=== PATIENT | female | born 1955 | race Caucasian/White ===

== ENCOUNTER → 2016-12-15 | Outpatient (CLI) | payer OTHER ==
[~2016-12-15] MED LIST: ALPR-411 PO; ALPR1TAB3 PO; ASPI-435 PO; ASPI325T60 PO; CALC1TAB25 PO; CIME800T4; CITA40TA4; CLBCRM30 EXT; CLX/20 PO; CYAN10004 PO; CYCL5TAB PO; FLUT0.15 NAE; GING1CAP2 PO; IBUP1CAP9; MULTTAB58 PO; OMEG10007 PO; PYRI1TAB30 PO; RXC5 PO; TRAZ100T29 PO; TRAZ50TA35 PO; TURM1CAP2 PO; VITACAP26; VITACAP26 PO; [UNRECOGNIZED DRUG - OTHER] PO
--- NOTE | 2016-12-15 12:59 | DIAGNOSTIC IMAGING REPORT ---
VIDEO SWALLOW STUDY CLINICAL HISTORY: Oral dysphagia. COMPARISON STUDY: No priors. Fluoroscopy time: 1.6 minutes. FINDINGS: Fluoroscopic guidance was provided to the department of speech pathology in performing a video swallow study. The patient consumed barium-impregnated pudding, nectar thick liquid, and thin barium while the swallowing mechanism was observed in real-time. Aspiration was seen with all of the sampled textures. Significantly disordered swallowing was observed. IMPRESSION: Disordered swallowing with aspiration identified on all sampled textures. See speech pathology report for detailed findings and recommendations. Dictated: 12/15/2016 12:08 PM Transcribed: 12/15/2016 12:59 PM [facility] Electronically signed by: Max Jade M.D. 12/15/2016 1:02 PM Dictated Date/Time: 12/15/2016 12:08 PM
--- NOTE | 2016-12-15 15:15 | SWALLOWING EVALUATION ---
REFERRING SPEECH PATHOLOGIST: N/A HISTORY: This 61 year-old female was referred for a VFSS at [facility] in order to address c/o increased dysphagia with both food and liquid. The patient has a PMH significant for acute onset dysarthria and dysphagia in August 2016 and CVA at age 25 with left-sided weakness that is now resolved. The patient attributes the onset of dysarthria and dysphagia to a medication error that resulted in her abruptly stopping her trazadone that she takes for sleep. Currently the patient's diet level is regular, but she has been unable to eat foods that are not very soft and/or slippery. She reports that she is able to keep her weight stable and she does exercise regularly. She denies any s/s TRACY. PROCEDURE: The patient was seen in the Radiology Department of [facility] for the VFSS. Cursory examination of the oral cavity revealed adequate dentition. Movement of the articulators was impaired as evidenced by dysarthric speech and decreased lingual strength and ROM. Specifically, the patient was unable to demonstrate lingual elevation. The patient was seated on a stool and was viewed in both the Anterior-Posterior (A-P) and Lateral planes. Volitional phonation exercises completed in the A-P plane revealed bilateral vocal fold movement and vocal intensity within functional limits. Vocal quality was raspy. In the lateral plane, the patient was given the following boluses: 1 tsp. thin liquid barium x 2, single swallow thin liquid barium self-presented from a cup, 1 tsp. nectar-thick liquid barium, single swallow nectar-thick liquid barium self-presented from a cup, and 1 tsp. barium pudding. The patient was then repositioned into the A-P plane and given 1 tsp. barium pudding. RESULTS: Oral Stage: No labial bolus escape. Cohesive bolus between tongue and palate during oral bolus hold exercise. Mastication not tested. Slowed tongue movement for bolus transport. Lingual bolus retention after the swallow that cleared with dry swallow(s). Latent pharyngeal swallow initiation when the bolus head was in the pyriform sinuses. The patient demonstrated weakened oral motor movements and latent pharyngeal swallow initiation. Pharyngeal Stage: No bolus between the soft palate and pharyngeal wall. Partial superior movement of the thyroid cartilage with partial approximation of the arytenoids to the epiglottic petiole. NO ANTERIOR HYOID MOVEMENT. NO EPIGLOTTIC INVERSION. NO LARYNGEAL VESTIBULAR CLOSURE. Diminished pharyngeal stripping wave. Incomplete pharyngeal contraction in the AP plane with presence of pseudodiverticulae that cleared with several swallows. MINIMAL DISTENTION AND DURATION OF PES OPENING. Narrow column of contrast between tongue base and pharyngeal wall. Collection of residue in valleculae and pyriform sinuses after the swallow that minimized with dry swallow(s). THERE WAS ASPIRATION OF ALL CONSISTENCIES DURING THIS STUDY. The patient had markedly dysfunctional pharyngeal swallow mechanics. With no epiglottic inversion there is no airway protection. Aspiration of thin liquids was TIERNEY and there was minimal sensory response to the aspiration. Esophageal Stage: A pudding bolus transited the esophagus without evidence of retention. SUMMARY/RECOMMENDATIONS: This patient presents with mild oral stage and SEVERE pharyngeal stage dysphagia. It is difficult to make recommendations for the patient because she is fully independent adult and is not currently sick despite the fact that she is chronically aspirating. The following is recommended: 1. Soft diet as tolerated 2. Aspiration precautions: FREQUENT ORAL HYGIENE, limit liquids to water/coffee/tea (water-based liquids), take medications in a carrier (e.g. apple sauce, pudding, yogurt, etc.), alternate solids and liquids 1:1 during meals 3. Consideration of f/u with neurology re: these marked changes to the patient's speech and swallowing 4. Consideration of f/u with outpatient [facility] services for speech and swallowing therapy. It will be very helpful in planning treatment for this patient to have a diagnosis/etiology for the dysarthria and dysphagia. A summary of the results and recommendations was discussed with the patient immediately following the study. Her PCP's office was called. I was instructed to send the patient home and told they would call her there and arrange f/u. Thank you for referral of this patient. Please contact me at if any additional information is needed.
--- NOTE | 2016-12-22 13:00 | CODING QUERY MEDICAL NECESSITY ---
SUPPORTING DIAGNOSIS NEEDED Dr. Aguilar, A supporting diagnosis is required for the test/procedure performed on this patient in order for us to be reimbursed by the patient's insurance. Please provide a supporting diagnosis for the following test/procedure listed below next to the test name along with your signature. *If there is no additional diagnosis for this patient that would support the following test/procedure please document that below next to the test/procedure. Test(s)/Procedure(s) that require a supporting diagnosis: * ([id number]) BARIUM SWALLOW DIAGNOSIS: DATE OF SERVICE: 12/15/16 Provider Signature: Date: Thank you Shahid Todd [facility] Information Management Once completed, please kindly fax back to [phone] For questions please call [phone]
== END | disposition home or self-care (01) ==
LOC: C.RAD 11:19
PROVIDERS: ATTEND Internal Medicine
DX: R13.11 Dysphagia, oral phase (principal)

== ENCOUNTER → 2016-12-28 | Outpatient (CLI) | payer OTHER ==
[~2016-12-28] MED LIST changes: +GADAVIST IV PRN
--- NOTE | 2016-12-28 14:50 | DIAGNOSTIC IMAGING REPORT ---
MRI OF THE BRAIN WITHOUT AND WITH IV CONTRAST CLINICAL HISTORY: Oropharyngeal dysphagia. Slurred speech. Difficulty swallowing. COMPARISON STUDY: No previous studies for comparison. TECHNIQUE: MRI of the brain was performed from the vertex to the skull base utilizing various T1 and T2 weighted sequences. Following the IV administration of 5 mL of Gadavist contrast, additional enhanced images were obtained. The patient was imaged under 0.7 Lesley open MRI scanner FINDINGS: Sagittal T1, axial diffusion, proton density and T2 weighted axial, coronal FLAIR, and pre and post axial T1-weighted images were acquired. These were supplemented with post gadolinium coronal T1 weighted images. No intra or extra-axial mass lesions are visualized. Axial diffusion-weighted images reveal no evidence of acute or subacute infarction. There is no evidence of ventricular dilatation. Proton density T2-weighted and FLAIR images reveal an old left superior cerebellar infarct. There are no abnormal flow voids. There is no evidence of pathologic enhancement. IMPRESSION: Old left cerebellar infarct. No acute intracranial findings. No evidence of acute or subacute infarction. No evidence of intracranial mass. Electronically signed by: Keith Germain M.D. 12/28/2016 2:49 PM Dictated Date/Time: 12/28/2016 2:46 PM
== END | disposition home or self-care (01) ==
LOC: C.OPENMRI 13:35
PROVIDERS: ATTEND Internal Medicine
DX: R13.12 Dysphagia, oropharyngeal phase (principal); R47.81 Slurred speech; Z86.73 Personal history of transient ischemic attack (TIA), and cerebral infarction without residual deficits

== ENCOUNTER 2017-02-25 15:57 | Inpatient (IN) | payer OTHER ==
[~2017-02-25] VITALS: Ht 167.6 cm; Wt 53.7 kg
[~2017-02-25 15:57] MED LIST changes: -ALPR-411 PO; -ASPI-435 PO; -ASPI325T60 PO; -CALC1TAB25 PO; -CLX/20 PO; -CYAN10004 PO; -CYCL5TAB PO; -FLUT0.15 NAE; -GADAVIST IV PRN; -GING1CAP2 PO; -OMEG10007 PO; -PYRI1TAB30 PO; -RXC5 PO; -TRAZ50TA35 PO; -TURM1CAP2 PO; -VITACAP26 PO; -[UNRECOGNIZED DRUG - OTHER] PO
[2017-02-25] MEDS ORDERED: ONDANSETRON INJ 2 MG/ML 2 ML VIAL IV STA (16:08)
[2017-02-25] MEDS ORDERED: SODIUM CHLORIDE 0.9% 1000ML 1,000 ML IV STA (16:08)
--- NOTE | 2017-02-25 16:10 | EMERGENCY ROOM VISIT NOTE ---
History Report prepared by Shiva: Jammie Brown Under the Supervision of: Dr. Max Espitia M.D. First contact with patient: 16:02 Chief Complaint: FALL Stated Complaint: FALL, HIP PAIN History of Present Illness The patient is a 61 year old female who presents to the Emergency Room with complaints of constant right hip pain following a fall that occurred 30 minutes prior to arrival. The patient states that she was out with her dog when she got caught around the leash and tripped. The patient fell to the ground on her right hip. She denies head injury or LOC. The patient denies any other symptoms at this time. 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 Review of Systems See HPI for pertinent positives & negatives. A total of 10 systems reviewed and were otherwise negative. Past Medical & Surgical Medical Problems: (1) Anxiety (2) Chronic interstitial cystitis (3) CVA (cerebral vascular accident) (4) Depression (5) DVT (deep venous thrombosis) (6) Hip fracture (7) Osteoarthritis, hand Surgical Problems: (1) H/O esophagogastroduodenoscopy (2) S/P hysterectomy (3) S/P tonsillectomy (4) S/P tubal ligation Family History Patient reports no known family medical history. Social History Smoking Status: Never Smoker Smokeless Tobacco Use: No Alcohol Use: none Marital Status: Housing Status: lives with family Current/Historical Medications Scheduled Aspirin (Aspirin 81), 81 MG PO DAILY Calcium W/ Magnesium (Calcium Magnesium 750), Unknown Dose PO DAILY Citalopram (Citalopram Hydrobromide), 30 MG PO QAM Cyanocobalamin (Vitamin B-12 1000 Mcg), 1 TAB PO Q2D Fish Oil ([place]awnee-3), 1 CAP PO DAILY Crystal (Zingiber Officinalis) (Crystal Root), 1 CAP PO DAILY Pyridoxine HCl (B6 Natural), 1 TAB PO DAILY Trazodone Hcl (Trazodone), 50 MG PO HS Turmeric (Curcuma Longa) (Turmeric), 1 CAP PO DAILY Vitamins C & E (Vitamin C), DAILY [TRISHA supplement], Unknown Dose PO DAILY Scheduled PRN Alprazolam (Alprazolam), 1 TAB PO BID PRN for Anxiety Cyclobenzaprine Hcl (Flexeril), 1 TAB PO BID PRN for Muscle Spasms Fluticasone Propionate (Nasal) (Flonase Allergy Relief), 2 SPRAYS SHIRA DAILY PRN for Nasal Congestion Allergies Coded Allergies: Sulfa Antibiotics (Verified Allergy, Unknown, ?, 02/25/17) Physical Exam Vital Signs Date Time Temp Pulse Resp B/P Pulse Ox O2 Delivery O2 Flow Rate FiO2 02/25/17 16:04 36.4 81 18 147/89 98 Room Air Physical Exam GENERAL: Patient is awake and alert. Patient is very anxious and uncomfortable appearing. EYES: The conjunctivae are clear. The pupils are round and reactive. EARS, NOSE, MOUTH AND THROAT: The nose is without any evidence of any deformity. Mucous membranes are moist tongue is midline NECK: The neck is nontender and supple. RESPIRATORY: Normal respiratory effort is noted there is no evidence of wheezing rhonchi or rales CARDIOVASCULAR: Regular rate and rhythm noted there no murmurs rubs or gallops normal S1 normal S2 GASTROINTESTINAL: The abdomen is soft. Bowel sounds are present in all quadrants. Abdomen is nontender MUSCULOSKELETAL/EXTREMITIES: Abrasion to lateral right elbow, no deformity, range of motion int act. Right hip swelling and ecchymosis over lateral right hip, unable to extend right hip. SKIN: There is no obvious evidence of any rash. There are no petechiae, pallor or cyanosis noted. NEUROLOGIC: Patient is awake alert and oriented x3 Medical Decision & Procedures ER Provider Diagnostic Interpretation: X-ray results as stated below per interpretation by me and the radiologist. AP PELVIS AND RIGHT HIP 3 VIEWS CLINICAL HISTORY: Right hip pain status post trauma COMPARISON STUDY: None FINDINGS: There is acute basicervical right hip fracture with extension to the greater trochanter. There is secondary varus angulation. There is no dislocation. IMPRESSION: Acute basicervical right hip fracture with extension to and probable involvement of the greater trochanter. Electronically signed by: Keith Germain M.D. 02/25/2017 5:01 PM Dictated Date/Time: 02/25/2017 4:58 PM Laboratory Results 02/25/17 16:10 Red Blood Count 4.41, Mean Corpuscular Volume 94.1, Mean Corpuscular Hemoglobin 31.5, Mean Corpuscular Hemoglobin Concent 33.5, Mean Platelet Volume 10.7, Neutrophils (%) (Auto) 51.9, Lymphocytes (%) (Auto) 37.4, Monocytes (%) (Auto) 7.7, Eosinophils (%) (Auto) 2.2, Basophils (%) (Auto) 0.5, Neutrophils # (Auto) 3.28, Lymphocytes # (Auto) 2.37, Monocytes # (Auto) 0.49, Eosinophils # (Auto) 0.14, Basophils # (Auto) 0.03 02/25/17 16:10 Test 02/25/17 16:10 02/25/17 16:39 White Blood Count 6.33 K/uL (4.8-10.8) Red Blood Count 4.41 M/uL (4.2-5.4) Hemoglobin 13.9 g/dL (12.0-16.0) Hematocrit 41.5 % (37-47) Mean Corpuscular Volume 94.1 fL (80-100) Mean Corpuscular Hemoglobin 31.5 pg (25-34) Mean Corpuscular Hemoglobin Concent 33.5 g/dl (32-36) Platelet Count 169 K/uL (130-400) Mean Platelet Volume 10.7 fL (7.4-10.4) Neutrophils (%) (Auto) 51.9 % Lymphocytes (%) (Auto) 37.4 % Monocytes (%) (Auto) 7.7 % Eosinophils (%) (Auto) 2.2 % Basophils (%) (Auto) 0.5 % Neutrophils # (Auto) 3.28 K/uL (1.4-6.5) Lymphocytes # (Auto) 2.37 K/uL (1.2-3.4) Monocytes # (Auto) 0.49 K/uL (0.11-0.59) Eosinophils # (Auto) 0.14 K/uL (0-0.5) Basophils # (Auto) 0.03 K/uL (0-0.2) RDW Standard Deviation 45.6 fL (36.4-46.3) RDW Coefficient of Variation 13.2 % (11.5-14.5) Immature Granulocyte % (Auto) 0.3 % Immature Granulocyte # (Auto) 0.02 K/uL (0.00-0.02) Prothrombin Time 10.6 SECONDS (9.0-12.0) Prothromb Time International Ratio 1.0 (0.9-1.1) Activated Partial Thromboplast Time 27.1 SECONDS (21.0-31.0) Partial Thromboplastin Ratio 1.0 Anion Gap 3.0 mmol/L (3-11) Est Creatinine Clear Calc Drug Dose 92.7 ml/min Estimated GFR () 118.0 Estimated GFR (Non- 101.8 BUN/Creatinine Ratio 27.5 (10-20) Calcium Level 9.1 mg/dl (8.5-10.1) Total Bilirubin 0.6 mg/dl (0.2-1) Direct Bilirubin 0.2 mg/dl (0-0.2) Aspartate Amino Transf (AST/SGOT) 30 U/L (15-37) Alanine Aminotransferase (ALT/SGPT) 39 U/L (12-78) Alkaline Phosphatase 91 U/L (45-117) Total Protein 7.8 gm/dl (6.4-8.2) Albumin 4.0 gm/dl (3.4-5.0) Lipase 291 U/L (73-393) Hepatitis C Antibody Screen NEG (NEG) Urine Color YELLOW Urine Appearance CLEAR (CLEAR) Urine pH 7.0 (4.5-7.5) Urine Specific [place] 1.014 (1.000-1.030) Urine Protein NEG (NEG) Urine Glucose (UA) NEG (NEG) Urine Ketones NEG (NEG) Urine Occult Blood NEG (NEG) Urine Nitrite NEG (NEG) Urine Bilirubin NEG (NEG) Urine Urobilinogen NEG (NEG) Urine Leukocyte Esterase NEG (NEG) Laboratory results per my review. Medications Administered Medications (Trade) Dose Ordered Sig/Lucio Route Start Time Stop Time Status Last Admin Dose Admin Morphine Sulfate (MoRPHine SULFATE INJ) 4 mg Q15M PRN IV 02/25/17 16:15 03/11/17 16:14 02/25/17 17:04 4 MG Ondansetron HCl 4 mg 4 mg NOW STAT IV 02/25/17 16:08 02/25/17 16:10 DC 02/25/17 16:25 4 MG Sodium Chloride (Nss 1000ml) 1,000 ml @ 125 mls/hr Q8H STAT IV 02/25/17 16:08 02/26/17 00:07 02/25/17 16:08 125 MLS/HR ED Course 1603: The patient was evaluated in room A9. A complete history and physical examination were performed. 1608: Sodium Chloride 1,000 ml @ 125 mls/hr IV, Zofran Inj 4 mg IV. 1615: Morphine Sulfate Inj 4 mg IV. 1729: I discussed the patient's case with LEO Daly. The patient will be evaluated for further management. 1732: Upon reevaluation, the patient is hemodynamically stable. I discussed results and treatment plan with the patient. She verbalizes agreement and understanding. I spoke with LEO Daly of the [facility]. The patient will be evaluated for further management and care. Medical Decision Differential diagnosis: Etiologies such as fracture, dislocation, neurovascular compromise, compartment syndrome, soft tissue injury, as well as others were entertained. Nursing notes reviewed. Additional history is obtained from prehospital personnel. The patient is a 61-year-old female who presented to the emergency department fall. Appeared isolated right hip pain. X-rays revealed a hip fracture on the right. I discussed the patient's laboratory and radiographic studies with her. She was treated with IV fluids IV pain medicine and IV antiemetics. On subsequent reevaluation she was feeling somewhat improved. I discussed her case with the on-call [facility] hospitalist group. They've agreed to evaluate the patient in the emergency department for further management and disposition. Consults Time Called: [phone] Consulting Physician: Marilou BAILEY Returned Call: [phone] I discussed the patient's case with LEO Daly. The patient will be evaluated for further management. Impression Primary Impression: Fall Additional Impression: Basicervical fracture of right femur Scribe Attestation The scribe's documentation has been prepared under my direction and personally reviewed by me in its entirety. I confirm that the note above accurately reflects all work, treatment, procedures, and medical decision making performed by me. Departure Information Dispostion Being Evaluated By Hospitalist Referrals Yuko Ely M.D. (PCP) Problem Qualifiers Primary Impression: Fall Encounter type: initial encounter Qualified Codes: W19.XXXA - Unspecified fall, initial encounter
[2017-02-25 16:21] LABS: BASO % 0.5 %; BASO ABS # 0.03 K/uL (0-0.2); COMPLETE YES; EOS % 2.2 %; HEMATOCRIT 41.5 % (37-47); IG% 0.3 %; LYMPH % 37.4 %; LYMPH ABS # 2.37 K/uL (1.2-3.4); MEAN CELL VOLUME 94.1 fL (80-100); MEAN CORPUSCULAR HEMOGLOBIN 31.5 pg (25-34); MEAN CORPUSCULAR HGB CONC 33.5 g/dl (32-36); MEAN PLATELET VOLUME 10.7 fL (7.4-10.4); MONO % 7.7 %; NEUT % 51.9 %; PLATELET COUNT 169 K/uL (130-400); RED BLOOD COUNT 4.41 M/uL (4.2-5.4); WHITE BLOOD COUNT 6.33 K/uL (4.8-10.8)
[2017-02-25] MEDS: MoRPHine SULFATE 4 MG/ML 1 ML CARP\\VIAL IV PRN ×3 (16:24→19:32)
[2017-02-25] MEDS ORDERED: CLX/20 PO (16:31)
[2017-02-25 16:34] LABS: PROTHROMBIN TIME (PATIENT) 10.6 SECONDS (9.0-12.0)
[2017-02-25 16:51] LABS: BUN/CREATININE RATIO 27.5 (10-20); CALCIUM 9.1 mg/dl (8.5-10.1); CREATININE 0.54 mg/dl (0.60-1.20); POTASSIUM 3.7 mmol/L (3.5-5.1)
[2017-02-25 16:55] LABS: URINE APPEARANCE CLEAR (CLEAR); URINE BILIRUBIN NEG (NEG); URINE COLOR YELLOW; URINE NITRITE NEG (NEG); URINE SPECIFIC GRAVITY 1.014 (1.000-1.030); UROBILINOGEN NEG (NEG)
[2017-02-25 16:56] LABS: MANUAL MICROSCOPIC REQUIRED? NO; REVIEW REQ? NO
--- NOTE | 2017-02-25 17:02 | DIAGNOSTIC IMAGING REPORT ---
AP PELVIS AND RIGHT HIP 3 VIEWS CLINICAL HISTORY: Right hip pain status post trauma COMPARISON STUDY: None FINDINGS: There is acute basicervical right hip fracture with extension to the greater trochanter. There is secondary varus angulation. There is no dislocation. IMPRESSION: Acute basicervical right hip fracture with extension to and probable involvement of the greater trochanter. Electronically signed by: Keith Germain M.D. 02/25/2017 5:01 PM Dictated Date/Time: 02/25/2017 4:58 PM
[2017-02-25] MEDS ORDERED: ACETAMINOPHEN 325 MG TAB PO PRN (17:45)
[2017-02-25] MEDS ORDERED: CYCLOBENZAPRINE HCL 5 MG TAB PO PRN (18:15)
[2017-02-25] MEDS ORDERED: FLUTICASONE PROPIONATE NA SPR 16 GM BTL NAE PRN (18:15)
[2017-02-25] MEDS ORDERED: GING1CAP2 PO (18:29)
[2017-02-25] MEDS ORDERED: ALPR-411 PO (18:29)
[2017-02-25] MEDS ORDERED: ASPI-435 PO (18:29)
[2017-02-25] MEDS ORDERED: TURM1CAP2 PO (18:29)
[2017-02-25] MEDS ORDERED: CALC1TAB25 PO (18:29)
[2017-02-25] MEDS ORDERED: [UNRECOGNIZED DRUG - OTHER] PO (18:29)
[2017-02-25] MEDS ORDERED: TRAZ50TA35 PO (18:29)
[2017-02-25] MEDS ORDERED: CYCL5TAB PO (18:29)
[2017-02-25] MEDS ORDERED: CYAN10004 PO (18:29)
[2017-02-25] MEDS ORDERED: FLUT0.15 NAE (18:29)
[2017-02-25] MEDS ORDERED: OMEG10007 PO (18:29)
[2017-02-25] MEDS ORDERED: PYRI1TAB30 PO (18:29)
[2017-02-25] MEDS ORDERED: VITACAP26 PO (18:29)
--- NOTE | 2017-02-25 18:32 | Progress Note ---
Progress Note Date of Service Feb 25, 2017. Progress Note Patient was seen and evaluated with Chato BAILEY. Patient is here for a mechanical fall and found to have right hip fracture on x ray. C/o pain and nausea after IV Morphine EXAM: Gen: AAOX3, mild distress sec to pain, Frail, malnourished Neck: No JVD, HEENT- no icterus Lungs: AEBE, no wheezing, rhonchi Abd: Soft, non tender, non distended, BS present Ext: No edema Neuro: No focal deficits, Labs: No sig abnormalities, EKG-pending, CXR pending A/P: 1. RIGHT HIP FRACTURE S/P MECHANICAL FALL Does have some balance issues and being evaluated for motor neuron disease at [facility] -Pre op evaluation: No cardio pulm symptoms. Functional status: Does do stationary bike 6 miles daily -Risk factors: Prior hx of stroke with left sided para paresis, recovered 90% per her, No prior hx of SC, CKD -Will follow up EKG, CXR as part of pre operative work up DVT PROPHYLAXIS SCDS/TEDS: RE NEED for surgery Agree with A/P of JEAN Miranda
[2017-02-25 18:53] VITALS: BP 133/73; PULSE 78; TEMP 36.7; O2SAT 97; Ht 167.6 cm; Wt 53.7 kg
--- NOTE | 2017-02-25 18:53 | DIAGNOSTIC IMAGING REPORT ---
CHEST ONE VIEW PORTABLE CLINICAL HISTORY: Trauma. Hip fracture. Preoperative chest. COMPARISON STUDY: No previous studies for comparison. FINDINGS: The cardiac and mediastinal contours are normal. There is no evidence of focal pulmonary consolidation. There is no evidence of failure. No pleural effusions are visualized.[ IMPRESSION: No active disease in the chest. Electronically signed by: Keith Germain M.D. 02/25/2017 6:51 PM Dictated Date/Time: 02/25/2017 6:51 PM
--- NOTE | 2017-02-25 19:14 | History and Physical ---
History & Physical Date & Time of Service: Feb 25, 2017 at 18:32 Chief Complaint: Fall, Hip Pain Primary Care Physician: Yuko Ely M.D. History of Present Illness Source: patient, spouse ( at bedside), clinic records This is a 61 year old female with remote history of CVA in her 20s during , remote history of DVT in 20s during , no longer on anticoagulant, depression, anxiety, and other problems listed below who presents to the ED for right hip pain s/p mechanical fall. Patient reports falling today while walking her dog. She states leash got tangled on mail box and she lost her balance and fell off the curb. She fell onto her right hip and her neighbor moved her off the street and she was brought to ER by ambulance. She also sustained abrasion to her right elbow and right ankle but not having pain there. She rates right hip pain 7-8/10. Has received IV morphine total of 8 mg in ER with mild improvement. Patient was feeling normally (for her) prior to falling. Patient is currently undergoing neurology workup for dysphagia, dysarthria, and balance difficulty which started in July 2016. She was seen by Dr. 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 Referral to [facility] was made and she has an appointment for March 09. Patient reports improved swallowing after undergoing esophageal dilation. She has been tolerating ground diet with precautions. No aspiration episodes. She had been using a cane to ambulate in the house. She reports exercising regularly on a stationery bike. She denies dizziness, syncope, GOODMAN, vision change, focal weakness or numbness, fevers, chills, URI symptoms, cough, SOB, ESQUIVEL, chest pain, palpitations, N/V/D, dysuria , frequency, abnormal bleeding, calf pain, edema. No history of cardiac disorder. Past Medical/Surgical History Medical Problems: (1) Anxiety Status: Chronic (2) Chronic interstitial cystitis Status: Chronic (3) CVA (cerebral vascular accident) Permanent Comment: age 20s during Status: Chronic (4) Depression Status: Chronic (5) DVT (deep venous thrombosis) Permanent Comment: age 20s, during ; no longer on anticoagulation Status: Chronic (6) Osteoarthritis, hand Status: Chronic Surgical Problems: (1) H/O esophagogastroduodenoscopy Permanent Comment: 12/18/2016- normal, dilation performed Status: Chronic (2) S/P hysterectomy Status: Chronic (3) S/P tonsillectomy Status: Chronic (4) S/P tubal ligation Status: Chronic Family History Patient reports no known family medical history. Social History Smoking Status: Never Smoker Smokeless Tobacco Use: No Alcohol Use: none Drug Use: none Marital Status: Housing status: lives with significant other Multi-Drug Resistant Organisms History of MDRO: No Allergies Coded Allergies: Sulfa Antibiotics (Verified Allergy, Unknown, ?, 02/25/17) Home Medications Scheduled Aspirin (Aspirin 81), 81 MG PO DAILY Calcium W/ Magnesium (Calcium Magnesium 750), Unknown Dose PO DAILY Citalopram (Citalopram Hydrobromide), 30 MG PO QAM Cyanocobalamin (Vitamin B-12 1000 Mcg), 1 TAB PO Q2D Fish Oil ([place]-3), 1 CAP PO DAILY Crystal (Zingiber Officinalis) (Crystal Root), 1 CAP PO DAILY Pyridoxine HCl (B6 Natural), 1 TAB PO DAILY Trazodone Hcl (Trazodone), 50 MG PO HS Turmeric (Curcuma Longa) (Turmeric), 1 CAP PO DAILY Vitamins C & E (Vitamin C), DAILY [TRISHA supplement], Unknown Dose PO DAILY Scheduled PRN Alprazolam (Alprazolam), 1 TAB PO BID PRN for Anxiety Cyclobenzaprine Hcl (Flexeril), 1 TAB PO BID PRN for Muscle Spasms Fluticasone Propionate (Nasal) (Flonase Allergy Relief), 2 SPRAYS SHIRA DAILY PRN for Nasal Congestion Review of Systems Ten systems reviewed and negative except as noted in HPI. Physical Exam Vital Signs Date Time Temp Pulse Resp B/P Pulse Ox O2 Delivery O2 Flow Rate FiO2 02/25/17 16:04 36.4 81 18 147/89 98 Room Air General Appearance: no apparent distress, + thin, + pertinent finding (alert cooperative 61 year old female, lying in bed, no distress, at bedside) Head: normocephalic, atraumatic Eyes: normal inspection, PERRL, EOMI, sclerae normal ENT: hearing grossly normal, pharynx normal, + pertinent finding (mildly hoarse speech) Neck: supple, trachea midline Respiratory/Chest: lungs clear, normal breath sounds, no respiratory distress Cardiovascular: regular rate, rhythm, no murmur Abdomen/GI: normal bowel sounds, non tender, soft Extremities/Musculoskelatal: no calf tenderness, no pedal edema, + pertinent finding (pain with movement of right hip. prefers to keep right hip flexed. no pain on ROM of right elbow and right ankle. ) Neurologic/Psych: alert, normal mood/affect, oriented x 3, + pertinent finding (speech is hoarse, no facial droop, unable to move the right hip due to pain, otherwise no gross focal deficit) Skin: normal color, warm/dry, + pertinent finding (ecchymosis right lateral hip. mild abrasion to right elbow. minimal abrasion to right ankle. ) Diagnostics Laboratory Results Results Past 24 Hours Test 02/25/17 16:10 02/25/17 16:39 Range/Units White Blood Count 6.33 4.8-10.8 K/uL Red Blood Count 4.41 4.2-5.4 M/uL Hemoglobin 13.9 12.0-16.0 g/dL Hematocrit 41.5 37-47 % Mean Corpuscular Volume 94.1 80-100 fL Mean Corpuscular Hemoglobin 31.5 25-34 pg Mean Corpuscular Hemoglobin Concent 33.5 32-36 g/dl Platelet Count 169 130-400 K/uL Mean Platelet Volume 10.7 7.4-10.4 fL Neutrophils (%) (Auto) 51.9 % Lymphocytes (%) (Auto) 37.4 % Monocytes (%) (Auto) 7.7 % Eosinophils (%) (Auto) 2.2 % Basophils (%) (Auto) 0.5 % Neutrophils # (Auto) 3.28 1.4-6.5 K/uL Lymphocytes # (Auto) 2.37 1.2-3.4 K/uL Monocytes # (Auto) 0.49 0.11-0.59 K/uL Eosinophils # (Auto) 0.14 0-0.5 K/uL Basophils # (Auto) 0.03 0-0.2 K/uL RDW Standard Deviation 45.6 36.4-46.3 fL RDW Coefficient of Variation 13.2 11.5-14.5 % Immature Granulocyte % (Auto) 0.3 % Immature Granulocyte # (Auto) 0.02 0.00-0.02 K/uL Prothrombin Time 10.6 9.0-12.0 SECONDS Prothromb Time International Ratio 1.0 0.9-1.1 Activated Partial Thromboplast Time 27.1 21.0-31.0 SECONDS Partial Thromboplastin Ratio 1.0 Sodium Level 142 136-145 mmol/L Potassium Level 3.7 3.5-5.1 mmol/L Chloride Level 106 98-107 mmol/L Carbon Dioxide Level 33 21-32 mmol/L Anion Gap 3.0 3-11 mmol/L Blood Urea Nitrogen 15 7-18 mg/dl Creatinine 0.54 0.60-1.20 mg/dl Est Creatinine Clear Calc Drug Dose 92.7 ml/min Estimated GFR () 118.0 Estimated GFR (Non- 101.8 BUN/Creatinine Ratio 27.5 10-20 Random Glucose 111 70-99 mg/dl Calcium Level 9.1 8.5-10.1 mg/dl Total Bilirubin 0.6 0.2-1 mg/dl Direct Bilirubin 0.2 0-0.2 mg/dl Aspartate Amino Transf (AST/SGOT) 30 15-37 U/L Alanine Aminotransferase (ALT/SGPT) 39 12-78 U/L Alkaline Phosphatase 91 45-117 U/L Total Protein 7.8 6.4-8.2 gm/dl Albumin 4.0 3.4-5.0 gm/dl Lipase 291 73-393 U/L Urine Color YELLOW Urine Appearance CLEAR CLEAR Urine pH 7.0 4.5-7.5 Urine Specific [place] 1.014 1.000-1.030 Urine Protein NEG NEG Urine Glucose (UA) NEG NEG Urine Ketones NEG NEG Urine Occult Blood NEG NEG Urine Nitrite NEG NEG Urine Bilirubin NEG NEG Urine Urobilinogen NEG NEG Urine Leukocyte Esterase NEG NEG Diagnostic Radiology AP PELVIS AND RIGHT HIP 3 VIEWS CLINICAL HISTORY: Right hip pain status post trauma COMPARISON STUDY: None FINDINGS: There is acute basicervical right hip fracture with extension to the greater trochanter. There is secondary varus angulation. There is no dislocation. IMPRESSION: Acute basicervical right hip fracture with extension to and probable involvement of the greater trochanter. CHEST ONE VIEW PORTABLE CLINICAL HISTORY: Trauma. Hip fracture. Preoperative chest. COMPARISON STUDY: No previous studies for comparison. FINDINGS: The cardiac and mediastinal contours are normal. There is no evidence of focal pulmonary consolidation. There is no evidence of failure. No pleural effusions are visualized.[ IMPRESSION: No active disease in the chest. EKG pending Impression Assessment and Plan RIGHT HIP FRACTURE S/P MECHANICAL FALL Right hip x-ray- acute basicervical right hip fracture with extension to and probable involvement of greater trochanter Moderate risk for surgery due to history of CVA No history of CAD; no cardiac signs or symptoms; exercises on stationary bike regularly Preop workup- labs unremarkable; CXR- no acute findings; EKG pending May proceed with surgery pending normal EKG Consult ortho- spoke with Dr. Marie; appreciate input Patient will be NPO after midnight for possible surgery tomorrow am POSSIBLE MOTOR NEURON DISEASE Undergoing neurology workup for dysphagia, dysarthria, and balance difficulty starting July 2016. 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 Putnam; referred to [facility]- upcoming appointment March 09 [facility] soft diet with aspiration precautions HISTORY OF CVA Occurred in her 20's during Hold aspirin for due to plan for surgery HISTORY OF DVT Occurred in her 20s during No longer on anticoagulation DEPRESSION/ ANXIETY Continue Xanax, citalopram, trazodone DVT PROPHYLAXIS SCD's due to plan for surgery tomorrow FULL CODE DISPOSITION Lives with Follows with Dr. Yuko Ely for primary care Patient seen in collaboration with Dr. Sandra Ely. Please see her addendum. VTE Prophylaxis VTE Risk Assessment Done? Y/N: Yes Risk Level: High
--- NOTE | 2017-02-25 19:16 | Progress Note ---
Progress Note Date of Service Feb 25, 2017. Progress Note Reviewed patient's EKG- NSR, no acute ischemic changes noted, CXR- no acute abnormalities. Cleared for surgery for hip fracture with moderate risk for cardio-pulmonary events. Discussed with ortho- surgery in AM
[2017-02-25 19:34] VITALS: O2SAT 97
[2017-02-25] MEDS ORDERED: TRAZODONE HCL 50 MG TAB PO SCH (21:00)
[2017-02-25] MEDS: ALPRAZOLAM 0.5 MG TAB PO PRN (21:14)
[2017-02-25] MEDS: ONDANSETRON INJ 2 MG/ML 2 ML VIAL IV PRN (21:16)
[2017-02-25 23:18] VITALS: BP 119/69; PULSE 84; TEMP 37; O2SAT 96
[2017-02-26] VITALS (8 sets, daily range): BP systolic 107–151; BP diastolic 67–77; PULSE 74–89; TEMP 36.8–37.1; O2SAT 94–100
[2017-02-26] MEDS: MoRPHine SULFATE 4 MG/ML 1 ML CARP\\VIAL IV PRN ×5 (00:06→21:55)
[2017-02-26] MEDS ORDERED: NURSING VERBAL MED ORDER ONE ×2 (02:00→17:45)
[2017-02-26] MEDS ORDERED: LORAZEPAM 0.5 MG TAB ONE (02:08)
--- NOTE | 2017-02-26 04:05 | ORTHOPEDIC CONSULTATION ---
DATE OF CONSULTATION: 02/25/2017 CHIEF COMPLAINT: Right hip pain. HISTORY OF PRESENT ILLNESS: The patient is a 61-year-old female who previously had a remote history of CVA, twice during , as well as remote history of DVT in the 20s, again during , not currently on anticoagulation, sustained a mechanical fall to the right hip. She was out today walking her dog, leash got tangled around her mailbox, and she lost her balance and fell landing on the curb. She had immediate pain and inability to bear weight. She was seen and evaluated in the Emergency Room. X-rays were obtained which demonstrated right intertroch hip fracture. She states she has a history of falls throughout her life. She is currently undergoing a neurological workup for dysphasia, dysarthria as well as difficulty in balance. Denies radicular pain. Denies previous injury. PAST MEDICAL HISTORY: Anxiety, CVA, depression, DVT, osteoarthritis. PAST SURGICAL HISTORY: EGD with dilation, hysterectomy, tonsillectomy, tubal ligation. FAMILY HISTORY: Noncontributory. SOCIAL HISTORY: Denies smoking, alcohol or drug use. ALLERGIES: SULFA. MEDICATIONS: Baby aspirin, calcium, citalopram, vitamin B12, fish oil, thelma, B6, trazodone, turmeric, vitamin C. REVIEW OF SYSTEMS: As above. PHYSICAL EXAMINATION: VITAL SIGNS: Afebrile. Vital signs stable. GENERAL: Alert and oriented x3, in no acute distress. Mood and affect normal. She is pleasant and cooperative with examination. HEENT: Atraumatic. CHEST: Clear. CARDIOVASCULAR: Regular rhythm. ABDOMEN: Soft, nontender. EXTREMITIES: Examination of right lower extremity, she has ecchymoses on the lateral aspect of the right hip. She has pain with internal and external rotation of the hip. Light touch sensation and motor function in the foot are intact. Palpable dorsalis pedis pulse. Cap refill is less than 2 seconds. Hemoglobin 13.9. X-rays demonstrate basicervical right hip fracture with extension into the greater trochanter. ASSESSMENT: Right hip intertrochanteric fracture. PLAN: Given the location of the fracture and displacement, I recommended open reduction internal fixation with an intramedullary trochanteric nail. Risks, benefits and alternatives to surgery including but not limited to infection, DVT, pain, stiffness, need for revision surgery, failure to relieve all symptoms, nonunion, damage to blood vessels, damage to nerves, risks of anesthesia were discussed with the patient and she wished to proceed. We will have her be n.p.o. after midnight and plan for surgery tomorrow.
[2017-02-26] MEDS: CITALOPRAM 20 MG TAB PO SCH (08:43)
[2017-02-26] MEDS ORDERED: GLYCOPYRROLATE INJ 0.2 MG/ML VIAL ONE (11:59)
[2017-02-26] MEDS ORDERED: MIDAZOLAM HCL 1 MG/ML 2ML VIAL ONE (11:59)
[2017-02-26] MEDS ORDERED: NEOSTIGMINE METHYLSULFATE 5 MG/5 ML SYR ONE (11:59)
[2017-02-26] MEDS ORDERED: PROPOFOL IV EMULSION 10 MG/ML 20 ML VIAL IV ONE (11:59)
[2017-02-26] MEDS ORDERED: ONDANSETRON INJ 2 MG/ML 2 ML VIAL ONE (11:59)
[2017-02-26] MEDS ORDERED: LIDOCAINE HCL 2% 2 ML VIAL (20MG/ML) ONE (11:59)
[2017-02-26] MEDS ORDERED: ROCURONIUM BROMIDE 10 MG/ML 5 ML VIAL ONE (11:59)
[2017-02-26] MEDS ORDERED: DEXAMETHASONE SOD INJ 4 MG/ML VIAL ONE (11:59)
[2017-02-26] MEDS ORDERED: FENTANYL CITRATE INJ 50 MCG/1 ML 2 ML VIAL ONE ×2 (11:59)
--- NOTE | 2017-02-26 12:03 | History & Physical Bridge Note ---
H&P Re-Evaluation Bridge Note: I have examined the patient, reviewed the History & Physical and in the interval since the performance of the History & Physical I have noted the following changes of clinical significance: No changes noted
[2017-02-26] MEDS ORDERED: NURSING VERBAL MED ORDER STA (12:19)
[2017-02-26] MEDS ORDERED: CEFAZOLIN SOD 1000MG/55 ML D5W IV ONE (12:23)
[2017-02-26] MEDS ORDERED: BUPIVACAINE/EPINEPHRINE 0.5% MPF 1:200,000 30 ML VIAL ONE (12:33)
[2017-02-26] MEDS ORDERED: HYDROmorphone INJ 2 MG/ML SYR/VIAL IV PRN (13:30)
[2017-02-26] MEDS ORDERED: ATROPINE SULFATE 0.1 MG/ML 5ML SYR IV PRN (13:30)
[2017-02-26] MEDS ORDERED: ONDANSETRON INJ 2 MG/ML 2 ML VIAL IV PRN ×2 (13:30→14:45)
[2017-02-26] MEDS ORDERED: KETOROLAC TROMETHAMINE 30 MG/ML VIAL IV. PRN (13:30)
--- NOTE | 2017-02-26 14:33 | [facility] Post Operative Brief Note ---
Immediate Operative Summary Operative Date Feb 26, 2017. Pre-Operative Diagnosis Right hip intertrochanteric fracture. Post-Operative Diagnosis Right hip intertrochanteric fracture. Procedure(s) Performed Open Reduction Internal Fixation with an Intramedullary Trochanteric Nail. Surgeon Dr. Marie Physical Aerodynamicist Surgeon(s) Stanford Pugh Estimated Blood Loss 100 ml Findings above Specimens none Drains 0 Anesthesia geta Complication(s) None Disposition Recovery Room / PACU
--- NOTE | 2017-02-26 14:34 | DIAGNOSTIC IMAGING REPORT ---
RIGHT HIP OR FILMS CLINICAL HISTORY: Right hip fracture COMPARISON STUDY: 02/25/2017 FLUOROSCOPY TIME: 156 seconds. 4 fluoroscopic spot images were acquired.. FINDINGS: There is been internal fixation of the patient's right femoral neck fracture with a trochanteric nail and interlocking intramedullary bashir. IMPRESSION: Internally fixated right hip fracture with a trochanteric nail and intramedullary bashir. Electronically signed by: Keith Germain M.D. 02/26/2017 2:33 PM Dictated Date/Time: 02/26/2017 2:31 PM
[2017-02-26] MEDS ORDERED: NALOXONE HCL 0.4 MG/1 ML VIAL/CARP IV PRN (14:45)
[2017-02-26] MEDS ORDERED: HYDROmorphone INJ 0.5 MG/0.5 ML SYR IV PRN (14:45)
[2017-02-26] MEDS ORDERED: KETOROLAC TROMETHAMINE 30 MG/ML VIAL ONE (14:58)
--- NOTE | 2017-02-26 15:02 | OPERATIVE REPORT ---
DATE OF OPERATION: 02/26/2017 PREOPERATIVE DIAGNOSIS: Right hip intertrochanteric fracture. POSTOPERATIVE DIAGNOSIS: Same. PROCEDURE: Open reduction internal fixation right intertrochanteric fracture with intramedullary nail. SURGEON: Everardo Marie MD MINT WAFER DEPOSITOR: Stanford Arndt PA-C who was necessary for assistance of procedure with positioning, prepping, draping, retraction and closure. ANESTHESIA: General endotracheal anesthesia. SPECIMENS: None. COMPLICATIONS: None. ESTIMATED BLOOD LOSS: 100 mL. INDICATIONS: The patient is a 61-year-old female who sustained a fall to the right hip. She sustained a displaced right intertrochanteric fracture. Given the nature of injury, I recommended open reduction internal fixation with a trochanteric nail. Risks, benefits, and alternatives of surgery including but not limited to infection, DVT, pain, stiffness, need for revision surgery, failure to relieve all symptoms, damage to blood vessels, damage to nerves, risks of anesthesia discussed with patient and she wished to proceed. DESCRIPTION OF PROCEDURE: The patient was identified, the laterality was confirmed and marked. She received a preoperative antibiotic as well as general anesthesia. She was then transferred to the fracture table, the pressure points were well padded. Operative limb was placed in traction and the leg in a well leg garcia. We confirmed appropriate reduction on AP and lateral fluoroscopy views. The hip was then prepped and draped in usual sterile manner with ChloraPrep. I made a longitudinal incision proximal to the greater trochanter part, sharply incised the skin, utilizing Bovie electrocautery to achieve hemostasis. I incised through the ITB fascia and then dissected down to the greater trochanter. Under fluoroscopic guidance, I placed a guide pin over the greater trochanter and then confirmed placement on AP and lateral fluoroscopy views. Once I was satisfied with the placement of the guide pin, overreamed with a 17 mm reamer and placed a guide bashir distally. I then placed a Synthes TFN nail, this was 11 mm x 130 degree short nail. We impacted it down and then through a stab incision, drilled for the helical blade. She had a little bit of posterior sag that we held in reduction was replaced the guide pin, then we overreamed and over drilled and measured for a 100 mm helical blade. We then inserted helical blade over the guide pin and then locked the rotation proximally with the set screw and then compressed the fracture. We had good decompression of the fracture. Through the aiming guide we made a stab incision and drilled and measured for a size 40 interference screw distally and put this into position. All the insertion equipment was then removed from the nail. We had a good reduction of the fracture, good alignment of the implant. Wound was thoroughly irrigated. Fascia was closed with interrupted #1 Vicryl sutures, subcutaneous tissue with interrupted 2-0 Vicryl suture and skin with faith. Sterile dressing was applied. All needle and sponge counts were correct at the end of the procedure. The patient was transferred to the PACU in stable condition without apparent complication. I attest to the content of the Intraoperative Record and any orders documented therein. Any exceptio ns are noted below.
--- NOTE | 2017-02-26 15:21 | Anesthesiology Progress Note ---
Anesthesia Post Op Note Date & Time Feb 26, 2017 at 15:20 Vital Signs Pain Intensity: 0 Vital Signs Past 12 Hours Date Time Temp Pulse Resp B/P Pulse Ox O2 Delivery O2 Flow Rate FiO2 02/26/17 15:11 70 17 99 02/26/17 15:11 70 17 02/26/17 15:10 145/73 02/26/17 15:06 71 15 02/26/17 15:06 71 15 98 02/26/17 15:05 76 16 02/26/17 15:05 77 16 99 02/26/17 15:04 145/83 02/26/17 15:00 72 12 02/26/17 15:00 72 12 99 02/26/17 14:59 146/77 02/26/17 14:55 74 16 02/26/17 14:55 73 16 140/78 100 02/26/17 14:50 80 17 02/26/17 14:50 80 17 100 02/26/17 14:49 138/67 02/26/17 14:45 81 18 100 02/26/17 14:45 37.5 86 16 137/71 99 Mask 10 02/26/17 14:45 81 18 02/26/17 07:10 36.8 77 17 133/67 98 Room Air 02/26/17 07:00 Room Air Notes Mental Status: alert / awake / arousable, participated in evaluation Pt Amnestic to Procedure: Yes Nausea / Vomiting: adequately controlled Pain: adequately controlled Airway Patency, RR, SpO2: stable & adequate BP & HR: stable & adequate Hydration State: stable & adequate Anesthetic Complications: no major complications apparent
[2017-02-26] MEDS: ONDANSETRON INJ 2 MG/ML 2 ML VIAL IV PRN (17:02)
[2017-02-26] MEDS: D5W AND NSS 1,000 ML IV SCH (17:45)
--- NOTE | 2017-02-26 18:25 | Progress Note ---
Subjective Date of Service: Feb 26, 2017. Problem List Medical Problems: (1) Basicervical fracture of right femur Status: Acute (2) Fall Status: Acute Objective Vital Signs Date Time Temp Pulse Resp B/P Pulse Ox O2 Delivery O2 Flow Rate FiO2 02/26/17 16:48 36.8 77 16 120/71 97 Nasal Cannula 2.0 02/26/17 16:15 36.8 74 16 151/73 98 Nasal Cannula 2.0 02/26/17 15:43 37.1 78 18 134/77 94 Nasal Cannula 2.0 02/26/17 15:40 94 Nasal Cannula 2.0 02/26/17 15:40 94 Nasal Cannula 2.0 02/26/17 15:35 139/84 02/26/17 15:33 78 14 02/26/17 15:33 77 14 96 02/26/17 15:29 137/77 02/26/17 15:28 75 14 99 02/26/17 15:28 76 14 02/26/17 15:25 37.4 02/26/17 15:25 130/80 02/26/17 15:23 78 13 02/26/17 15:23 78 13 98 02/26/17 15:22 75 17 98 02/26/17 15:22 76 17 02/26/17 15:20 142/77 02/26/17 15:17 73 12 02/26/17 15:17 73 12 98 02/26/17 15:14 142/77 02/26/17 15:12 77 14 02/26/17 15:12 80 14 100 02/26/17 15:11 70 17 99 02/26/17 15:11 70 17 02/26/17 15:10 145/73 02/26/17 15:06 71 15 02/26/17 15:06 71 15 98 02/26/17 15:05 76 16 02/26/17 15:05 77 16 99 02/26/17 15:04 145/83 02/26/17 15:00 72 12 02/26/17 15:00 72 12 99 02/26/17 14:59 146/77 02/26/17 14:55 74 16 02/26/17 14:55 73 16 140/78 100 02/26/17 14:50 80 17 02/26/17 14:50 80 17 100 02/26/17 14:49 138/67 02/26/17 14:45 81 18 100 02/26/17 14:45 37.5 86 16 137/71 99 Mask 10 02/26/17 14:45 81 18 02/26/17 07:10 36.8 77 17 133/67 98 Room Air 02/26/17 07:00 Room Air 02/26/17 00:11 Room Air 02/25/17 23:18 37.0 84 12 119/69 96 Room Air 02/25/17 19:34 97 Room Air 02/25/17 18:53 36.7 78 16 133/73 97 Room Air 02/25/17 18:45 Room Air 02/25/17 18:32 84 18 147/89 97 Room Air Assessment and Plan This is a 61 year old female with PMH of anxiety/depression, 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 presents with likely mechanical fall and subsequently found to have R hip fracture Right Hip Fracture s/p ORIF POD #0 patient presented with mechanical fall; X-rays showed fracture orthopedic surgery recommend ORIF and intratrochanteric nail she is doing well, pain is controlled with medications PT/OT as per ortho DVT prophylaxis as per ortho Anxiety/Depression increased Trazodone to 100mg qHS hold all vitamins and herbal supplements DVT ppx as per ortho FULL CODE
[2017-02-26] MEDS: CEFAZOLIN IV 1,000 MG in DEXTROSE 5% 50ML 50 ML IV SCH (20:23)
[2017-02-26] MEDS ORDERED: ASPIRIN/ALUM/MAGNES/CAL CARB 325 MG TAB PO SCH (21:00)
[2017-02-26] MEDS: TRAZODONE HCL 100 MG TAB PO SCH (21:55)
[2017-02-26] MEDS: ALPRAZOLAM 0.5 MG TAB PO PRN (21:55)
[2017-02-27] MEDS: D5W AND NSS 1,000 ML IV SCH ×3 (00:09→20:33)
[2017-02-27 03:21] VITALS: BP 99/61; PULSE 88; TEMP 37.3; O2SAT 100
[2017-02-27] MEDS: CEFAZOLIN IV 1,000 MG in DEXTROSE 5% 50ML 50 ML IV SCH (03:55)
[2017-02-27] MEDS: MoRPHine SULFATE 4 MG/ML 1 ML CARP\\VIAL IV PRN ×5 (04:38→23:12)
[2017-02-27 07:02] LABS: HEMATOCRIT 29.3 % (37-47); MEAN CELL VOLUME 94.8 fL (80-100); MEAN CORPUSCULAR HEMOGLOBIN 31.1 pg (25-34); MEAN CORPUSCULAR HGB CONC 32.8 g/dl (32-36); MEAN PLATELET VOLUME 10.8 fL (7.4-10.4); PLATELET COUNT 127 K/uL (130-400); RED BLOOD COUNT 3.09 M/uL (4.2-5.4); WHITE BLOOD COUNT 7.03 K/uL (4.8-10.8)
[2017-02-27 07:16] LABS: CALCIUM 7.9 mg/dl (8.5-10.1); CREATININE 0.46 mg/dl (0.60-1.20); POTASSIUM 3.7 mmol/L (3.5-5.1)
[2017-02-27 07:39] VITALS: BP 94/58; PULSE 96; TEMP 37.1; O2SAT 100
--- NOTE | 2017-02-27 07:49 | Orthopedic Progress Note ---
Orthopedic Progress Note Date of Service Feb 27, 2017. Subjective Post OP Day: 1 Reports: feeling well, pain controlled w PO medications, Denies: SOB, calf pain , chest pain, complaints, light headedness, nausea / vomiting Objective calves soft nontender, N/V intact, hip located, capillary refill less than 2 sec., dressing C/D/I, A&O x3, toes mobile Date Time Temp Pulse Resp B/P Pulse Ox O2 Delivery O2 Flow Rate FiO2 02/27/17 07:39 37.1 96 16 94/58 100 Room Air 02/27/17 03:21 37.3 88 12 99/61 100 Nasal Cannula 2.0 02/27/17 00:20 Nasal Cannula 2.0 02/26/17 23:14 36.9 80 12 107/69 99 Nasal Cannula 2.0 02/26/17 18:49 36.8 83 16 132/67 98 Nasal Cannula 2.0 02/26/17 17:46 36.9 89 16 117/70 100 Nasal Cannula 2.0 02/26/17 16:48 36.8 77 16 120/71 97 Nasal Cannula 2.0 02/26/17 16:15 36.8 74 16 151/73 98 Nasal Cannula 2.0 02/26/17 15:43 37.1 78 18 134/77 94 Nasal Cannula 2.0 02/26/17 15:40 94 Nasal Cannula 2.0 02/26/17 15:40 94 Nasal Cannula 2.0 02/26/17 15:35 139/84 02/26/17 15:33 78 14 02/26/17 15:33 77 14 96 02/26/17 15:29 137/77 02/26/17 15:28 75 14 99 02/26/17 15:28 76 14 02/26/17 15:25 37.4 02/26/17 15:25 130/80 02/26/17 15:23 78 13 02/26/17 15:23 78 13 98 02/26/17 15:22 75 17 98 02/26/17 15:22 76 17 02/26/17 15:20 142/77 02/26/17 15:17 73 12 02/26/17 15:17 73 12 98 02/26/17 15:14 142/77 02/26/17 15:12 77 14 02/26/17 15:12 80 14 100 02/26/17 15:11 70 17 99 02/26/17 15:11 70 17 02/26/17 15:10 145/73 02/26/17 15:06 71 15 02/26/17 15:06 71 15 98 02/26/17 15:05 76 16 02/26/17 15:05 77 16 99 02/26/17 15:04 145/83 02/26/17 15:00 72 12 02/26/17 15:00 72 12 99 02/26/17 14:59 146/77 02/26/17 14:55 74 16 02/26/17 14:55 73 16 140/78 100 02/26/17 14:50 80 17 02/26/17 14:50 80 17 100 02/26/17 14:49 138/67 02/26/17 14:45 81 18 100 02/26/17 14:45 37.5 86 16 137/71 99 Mask 10 02/26/17 14:45 81 18 Laboratory Results 24 Hours: Test 02/27/17 05:42 Hematocrit 29.3 % Hemoglobin 9.6 g/dL Assessment & Plan Assessment: POD #1, Rt hip ORIF troch nail Plan: PT/ OT DVT proph D/C planning- Rehab, HS when stable As per medicine. Inhouse Planning Pain Management: Dilaudid, Morphine, PO Tylenol, Oxy IR DVT Prophylaxis: TEDs, SCDs, ASA Discharge Planning Discharge Planning: rehab hospital Pain Management: PO Tylenol, Oxy IR DVT Prophylaxis: ASA Therapy: Physical Therapy, Occupational Therapy
[2017-02-27] MEDS: OXYCODONE HCL IR 5 MG TAB (IMMEDIATE RELEASE) PO PRN ×4 (08:30→21:26)
[2017-02-27] MEDS: CITALOPRAM 20 MG TAB PO SCH (08:32)
[2017-02-27] MEDS: ASPIRIN/ALUM/MAGNES/CAL CARB 325 MG TAB PO SCH ×2 (11:12→21:26)
[2017-02-27 11:40] VITALS: BP 103/67; PULSE 102; TEMP 36.9; O2SAT 97
[2017-02-27 15:14] VITALS: BP 94/60; PULSE 86; TEMP 37.2; O2SAT 92
--- NOTE | 2017-02-27 16:56 | Progress Note ---
Subjective Date of Service: Feb 27, 2017. Subjective Pt evaluation today including: conversation w/ patient, physical exam, lab review, review of studies, review of inpatient medication list Saw/examined the patient in room 304 No problems/issues to note today Did mention she wanted Alprazolam changed around so she could get it at night and in the AM She has trouble swallowing and would like pureed food and protein shakes with meals Pain controlled with medications Problem List Medical Problems: (1) Basicervical fracture of right femur Status: Acute (2) Fall Status: Acute Review of Systems Constitutional: No chills, No fever ENT: + trouble swallowing (chronic) Respiratory: No shortness of breath Cardiac: No chest pain Abdomen: No diarrhea, No nausea, No pain, No vomiting Musculoskeletal: + joint pain (controlled with medications) Medications Current Inpatient Medications Medications (Trade) Dose Ordered Sig/Lucio Route Start Time Stop Time Status Last Admin Dose Admin Acetaminophen (Tylenol Tab) 650 mg Q4H PRN PO 02/25/17 17:45 03/27/17 17:44 Ondansetron HCl (Zofran Inj) 4 mg Q6H PRN IV 02/25/17 17:45 03/27/17 17:44 02/26/17 17:02 4 MG Morphine Sulfate (MoRPHine SULFATE INJ) 4 mg Q4 PRN IV 02/25/17 18:15 03/11/17 18:14 02/27/17 14:02 4 MG Alprazolam (Xanax Tab) 0.5 mg BID PRN PO 02/25/17 18:15 03/27/17 18:14 02/26/17 21:55 0.5 MG Citalopram Hydrobromide (celeXA TAB) 30 mg QAM PO 02/26/17 09:00 03/28/17 08:59 02/27/17 08:32 30 MG Cyclobenzaprine HCl (Flexeril Tab) 5 mg BID PRN PO 02/25/17 18:15 03/27/17 18:14 Fluticasone Propionate 2 sprays 2 sprays DAILY PRN SHIRA 02/25/17 18:15 03/27/17 18:14 Dextrose/Sodium Chloride (D5W And Nss) 1,000 ml @ 100 mls/hr Q10H IV 02/26/17 14:33 03/28/17 14:32 02/27/17 00:09 100 MLS/HR Ondansetron HCl (Zofran Inj) 4 mg Q6H PRN IV 02/26/17 14:45 03/28/17 14:44 Oxycodone HCl (Roxicodone Immediate Rel Tab) 5 mg Q4H PRN PO 02/26/17 14:45 03/12/17 14:44 02/27/17 12:27 5 MG Hydromorphone HCl (Dilaudid Inj) 0.25 mg Q20M PRN IV 02/26/17 14:45 03/12/17 14:44 02/26/17 16:14 0.25 MG Naloxone HCl (Narcan Inj) 0.4 mg Q1M PRN IV 02/26/17 14:45 03/28/17 14:44 Magnesium Hydroxide (Milk Of Magnesia Susp) 30 ml DAILY PRN PO 02/26/17 14:45 03/28/17 14:44 Trazodone HCl (Desyrel Tab) 100 mg HS PO 02/26/17 21:00 03/28/17 20:59 02/26/17 21:55 100 MG Aspirin/Aluminum/ Magnesium/Ca Carb (Ascriptin Tab) 325 mg BID PO 02/27/17 09:30 03/29/17 09:29 02/27/17 11:12 325 MG Enteral Nutritional Formula (Boost) 1 can TIDM PO 02/27/17 17:45 03/29/17 17:44 Objective Vital Signs Date Time Temp Pulse Resp B/P Pulse Ox O2 Delivery O2 Flow Rate FiO2 02/27/17 15:14 37.2 86 18 94/60 92 Room Air 02/27/17 11:40 36.9 102 16 103/67 97 Room Air 02/27/17 10:50 Room Air 02/27/17 07:39 37.1 96 16 94/58 100 Room Air 02/27/17 03:21 37.3 88 12 99/61 100 Nasal Cannula 2.0 02/27/17 00:20 Nasal Cannula 2.0 02/26/17 23:14 36.9 80 12 107/69 99 Nasal Cannula 2.0 02/26/17 18:49 36.8 83 16 132/67 98 Nasal Cannula 2.0 02/26/17 17:46 36.9 89 16 117/70 100 Nasal Cannula 2.0 Physical Exam General Appearance: no apparent distress, + thin, + pertinent finding ( currently seated in a chair in no distress, on her phone, no issues to note) Respiratory/Chest: lungs clear, normal breath sounds, no respiratory distress, no accessory muscle use Cardiovascular: regular rate, rhythm, no edema, no murmur Neurologic/Psychiatric: + pertinent finding (labile mood) Laboratory Results Last 24 Hours Test 02/27/17 05:42 White Blood Count 7.03 K/uL Red Blood Count 3.09 M/uL Hemoglobin 9.6 g/dL Hematocrit 29.3 % Mean Corpuscular Volume 94.8 fL Mean Corpuscular Hemoglobin 31.1 pg Mean Corpuscular Hemoglobin Concent 32.8 g/dl RDW Standard Deviation 46.6 fL RDW Coefficient of Variation 13.4 % Platelet Count 127 K/uL Mean Platelet Volume 10.8 fL Sodium Level 142 mmol/L Potassium Level 3.7 mmol/L Chloride Level 106 mmol/L Carbon Dioxide Level 32 mmol/L Anion Gap 4.0 mmol/L Blood Urea Nitrogen 9 mg/dl Creatinine 0.46 mg/dl Est Creatinine Clear Calc Drug Dose 108.9 ml/min Estimated GFR () 124.4 Estimated GFR (Non- 107.4 BUN/Creatinine Ratio 20.0 Random Glucose 133 mg/dl Calcium Level 7.9 mg/dl Assessment and Plan This is a 61 year old female with PMH of anxiety/depression, 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
[2017-02-27] MEDS ORDERED: BOOST VANILLA PO SCH ×2 (17:45)
[2017-02-27] MEDS: BOOST VANILLA PO SCH ×2 (17:49)
[2017-02-27] MEDS: TRAZODONE HCL 100 MG TAB PO SCH (21:26)
[2017-02-27] MEDS: ALPRAZOLAM 0.5 MG TAB PO PRN (21:27)
[2017-02-27 23:44] VITALS: BP 96/62; PULSE 107; TEMP 37.2; O2SAT 95
[2017-02-28] MEDS: MoRPHine SULFATE 4 MG/ML 1 ML CARP\\VIAL IV PRN (04:41)
[2017-02-28 05:53] LABS: HEMATOCRIT 25.5 % (37-47); MEAN CELL VOLUME 94.1 fL (80-100); MEAN CORPUSCULAR HGB CONC 32.9 g/dl (32-36); MEAN PLATELET VOLUME 10.2 fL (7.4-10.4); PLATELET COUNT 110 K/uL (130-400); RED BLOOD COUNT 2.71 M/uL (4.2-5.4)
[2017-02-28] MEDS: D5W AND NSS 1,000 ML IV SCH (06:15)
[2017-02-28 06:24] LABS: BUN/CREATININE RATIO 28.9 (10-20); CALCIUM 7.9 mg/dl (8.5-10.1); CREATININE 0.41 mg/dl (0.60-1.20); POTASSIUM 3.6 mmol/L (3.5-5.1)
[2017-02-28] MEDS ORDERED: NURSING VERBAL MED ORDER ONE (06:30)
[2017-02-28 07:15] VITALS: BP 91/59; PULSE 104; TEMP 36.8; O2SAT 94
--- NOTE | 2017-02-28 08:03 | Orthopedic Progress Note ---
Orthopedic Progress Note Date of Service Feb 28, 2017. Subjective Post OP Day: 2 Reports: feeling well, pain controlled w PO medications, Denies: SOB, calf pain , chest pain, complaints, light headedness, nausea / vomiting Objective calves soft nontender, N/V intact, capillary refill less than 2 sec., dressing C /D/I, A&O x3, toes mobile Date Time Temp Pulse Resp B/P Pulse Ox O2 Delivery O2 Flow Rate FiO2 02/28/17 00:05 Room Air 02/27/17 23:44 37.2 107 14 96/62 95 Room Air 02/27/17 17:20 Room Air 02/27/17 15:14 37.2 86 18 94/60 92 Room Air 02/27/17 11:40 36.9 102 16 103/67 97 Room Air 02/27/17 10:50 Room Air Laboratory Results 24 Hours: Test 02/28/17 05:40 Hematocrit 25.5 % Hemoglobin 8.4 g/dL Assessment & Plan Assessment: POD #2, Rt hip ORIF troch nail Plan: PT/ OT DVT proph- ASA D/C planning- [facility] per primary team, likely not approved per insurance until Wednesday. As per medicine. Inhouse Planning Pain Management: Dilaudid, Morphine, PO Tylenol, Oxy IR DVT Prophylaxis: TEDs, SCDs, ASA Discharge Planning Discharge Planning: rehab hospital Pain Management: PO Tylenol, Oxy IR DVT Prophylaxis: ASA Therapy: Physical Therapy, Occupational Therapy
[2017-02-28] MEDS: ASPIRIN/ALUM/MAGNES/CAL CARB 325 MG TAB PO SCH ×2 (08:25→21:31)
[2017-02-28] MEDS: CITALOPRAM 20 MG TAB PO SCH (08:25)
[2017-02-28] MEDS: OXYCODONE HCL IR 5 MG TAB (IMMEDIATE RELEASE) PO PRN ×4 (08:26→21:31)
[2017-02-28] MEDS: BOOST VANILLA PO SCH ×6 (08:46→17:25)
[2017-02-28 09:24] VITALS: BP 103/62; PULSE 116; O2SAT 98
--- NOTE | 2017-02-28 14:46 | Progress Note ---
Subjective Date of Service: Feb 28, 2017. Subjective Pt evaluation today including: conversation w/ patient, physical exam, lab review, review of studies, review of inpatient medication list Saw/examined the patient in room 304 pain is controlled No other problems/issues to note today She is swallowing pureed food much better Problem List Medical Problems: (1) Basicervical fracture of right femur Status: Acute (2) Fall Status: Acute Review of Systems ENT: + trouble swallowing (chronic) Respiratory: No shortness of breath Cardiac: No chest pain Musculoskeletal: + joint pain (R hip controlled with medications), No calf pain , No swelling Medications Current Inpatient Medications Medications (Trade) Dose Ordered Sig/Lucio Route Start Time Stop Time Status Last Admin Dose Admin Acetaminophen (Tylenol Tab) 650 mg Q4H PRN PO 02/25/17 17:45 03/27/17 17:44 Ondansetron HCl (Zofran Inj) 4 mg Q6H PRN IV 02/25/17 17:45 03/27/17 17:44 02/26/17 17:02 4 MG Morphine Sulfate (MoRPHine SULFATE INJ) 4 mg Q4 PRN IV 02/25/17 18:15 03/11/17 18:14 02/28/17 04:41 4 MG Citalopram Hydrobromide (celeXA TAB) 30 mg QAM PO 02/26/17 09:00 03/28/17 08:59 02/28/17 08:25 30 MG Cyclobenzaprine HCl (Flexeril Tab) 5 mg BID PRN PO 02/25/17 18:15 03/27/17 18:14 Fluticasone Propionate (Flonase Nasal [place]) 2 sprays DAILY PRN SHIRA 02/25/17 18:15 03/27/17 18:14 Ondansetron HCl (Zofran Inj) 4 mg Q6H PRN IV 02/26/17 14:45 03/28/17 14:44 Oxycodone HCl (Roxicodone Immediate Rel Tab) 5 mg Q4H PRN PO 02/26/17 14:45 03/12/17 14:44 02/28/17 13:34 5 MG Hydromorphone HCl (Dilaudid Inj) 0.25 mg Q20M PRN IV 02/26/17 14:45 03/12/17 14:44 02/26/17 16:14 0.25 MG Naloxone HCl (Narcan Inj) 0.4 mg Q1M PRN IV 02/26/17 14:45 03/28/17 14:44 Magnesium Hydroxide (Milk Of Magnesia Susp) 30 ml DAILY PRN PO 02/26/17 14:45 03/28/17 14:44 Trazodone HCl (Desyrel Tab) 100 mg HS PO 02/26/17 21:00 03/28/17 20:59 02/27/17 21:26 100 MG Aspirin/Aluminum/ Magnesium/Ca Carb (Ascriptin Tab) 325 mg BID PO 02/27/17 09:30 03/29/17 09:29 02/28/17 08:25 325 MG Enteral Nutritional Formula (Boost) 1 can TIDM PO 02/27/17 17:45 03/29/17 17:44 02/28/17 12:59 1 CAN Alprazolam (Xanax Tab) 0.5 mg BID@0500,2100 PO 02/28/17 21:00 03/30/17 20:59 Objective Vital Signs Date Time Temp Pulse Resp B/P Pulse Ox O2 Delivery O2 Flow Rate FiO2 02/28/17 09:24 116 98 02/28/17 09:15 Room Air 02/28/17 07:15 36.8 104 16 91/59 94 Room Air 02/28/17 00:05 Room Air 02/27/17 23:44 37.2 107 14 96/62 95 Room Air 02/27/17 17:20 Room Air 02/27/17 15:14 37.2 86 18 94/60 92 Room Air Physical Exam General Appearance: + thin Respiratory/Chest: lungs clear, normal breath sounds, no respiratory distress, no accessory muscle use Cardiovascular: regular rate, rhythm, no edema, no murmur Extremities: non-tender, normal inspection, no pedal edema, no calf tenderness Laboratory Results Last 24 Hours Test 02/28/17 05:40 White Blood Count 6.30 K/uL Red Blood Count 2.71 M/uL Hemoglobin 8.4 g/dL Hematocrit 25.5 % Mean Corpuscular Volume 94.1 fL Mean Corpuscular Hemoglobin 31.0 pg Mean Corpuscular Hemoglobin Concent 32.9 g/dl RDW Standard Deviation 45.9 fL RDW Coefficient of Variation 13.3 % Platelet Count 110 K/uL Mean Platelet Volume 10.2 fL Sodium Level 141 mmol/L Potassium Level 3.6 mmol/L Chloride Level 104 mmol/L Carbon Dioxide Level 34 mmol/L Anion Gap 3.0 mmol/L Blood Urea Nitrogen 12 mg/dl Creatinine 0.41 mg/dl Est Creatinine Clear Calc Drug Dose 122.2 ml/min Estimated GFR () 129.2 Estimated GFR (Non- 111.5 BUN/Creatinine Ratio 28.9 Random Glucose 107 mg/dl Calcium Level 7.9 mg/dl Assessment and Plan This is a 61 year old female with PMH of anxiety/depression, 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 presents with likely mechanical fall and subsequently found to have R hip fracture Right Hip Fracture 02/28 s/p ORIF POD #2 full dose aspirin for DVT ppx d/c to [facility] 02/27 s/p ORIF POD #1 appreciate ortho input full dose aspirin for DVT ppx PT/OT - plan for d/c to [facility] on March 0102/26 s/p ORIF POD #0 patient presented with mechanical fall; X-rays showed fracture orthopedic surgery recommend ORIF and intratrochanteric nail she is doing well, pain is controlled with medications PT/OT as per ortho DVT prophylaxis as per ortho Anxiety/Depression increased Trazodone to 100mg qHS hold all vitamins and herbal supplements DVT ppx ASA 325mg FULL CODE
[2017-02-28 15:21] VITALS: BP 96/62; PULSE 114; TEMP 36.7; O2SAT 98
[2017-02-28] MEDS: MAGNESIUM HYDROXIDE SUSP 30 ML UDC PO PRN (18:52)
[2017-02-28] MEDS: ALPRAZOLAM 0.5 MG TAB PO SCH (21:31)
[2017-02-28] MEDS: TRAZODONE HCL 100 MG TAB PO SCH (21:31)
[2017-02-28 23:45] VITALS: BP 105/66; PULSE 104; TEMP 36.8; O2SAT 94
[2017-03-01] MEDS: OXYCODONE HCL IR 5 MG TAB (IMMEDIATE RELEASE) PO PRN ×3 (01:57→17:42)
[2017-03-01] MEDS: ALPRAZOLAM 0.5 MG TAB PO SCH ×2 (05:15→21:08)
[2017-03-01 05:55] LABS: HEMATOCRIT 26.4 % (37-47); MEAN CORPUSCULAR HEMOGLOBIN 30.2 pg (25-34); MEAN CORPUSCULAR HGB CONC 32.2 g/dl (32-36); MEAN PLATELET VOLUME 10.2 fL (7.4-10.4); PLATELET COUNT 125 K/uL (130-400); RED BLOOD COUNT 2.81 M/uL (4.2-5.4)
--- NOTE | 2017-03-01 06:56 | Orthopedic Progress Note ---
Orthopedic Progress Note Date of Service March 01, 2017. Subjective Post OP Day: 3 Reports: feeling well, Denies: SOB, calf pain, chest pain, complaints, light headedness, nausea / vomiting Additional Notes: Patient states that she feels well with no complaints. Her pain is controlled with pain medication. Objective calves soft nontender, N/V intact, hip located, capillary refill less than 2 sec., dressing C/D/I, A&O x3, toes mobile Date Time Temp Pulse Resp B/P Pulse Ox O2 Delivery O2 Flow Rate FiO2 02/28/17 23:45 36.8 104 16 105/66 94 Room Air 02/28/17 23:30 Room Air 02/28/17 16:30 Room Air 02/28/17 15:21 36.7 114 18 96/62 98 Room Air 02/28/17 09:24 116 98 02/28/17 09:15 Room Air 02/28/17 07:15 36.8 104 16 91/59 94 Room Air Laboratory Results 24 Hours: Test 03/01/17 05:24 Hematocrit 26.4 % Hemoglobin 8.5 g/dL Assessment & Plan Assessment: POD #3, Rt hip ORIF troch nail Plan: PT/ OT DVT proph- ASA D/C planning- [facility] per primary team. Instructions placed in chart. As per medicine. ORTHO WILL SIGN OFF FOR NOW. PLEASE CALL WITH ANY QUESTIONS. Inhouse Planning Pain Management: Dilaudid, Morphine, PO Tylenol, Oxy IR DVT Prophylaxis: TEDs, SCDs, ASA Discharge Planning Discharge Planning: rehab hospital Pain Management: PO Tylenol, Oxy IR DVT Prophylaxis: TEDs, ASA Therapy: Physical Therapy, Occupational Therapy
[2017-03-01 07:06] VITALS: BP 95/61; PULSE 101; TEMP 36.5; O2SAT 99
--- NOTE | 2017-03-01 08:17 | Anesthesiology Progress Note ---
Anesthesia Post Op Note Date & Time March 01, 2017 at 08:14 Vital Signs Vital Signs Past 12 Hours Date Time Temp Pulse Resp B/P Pulse Ox O2 Delivery O2 Flow Rate FiO2 03/01/17 07:06 36.5 101 17 95/61 99 Room Air 02/28/17 23:45 36.8 104 16 105/66 94 Room Air 02/28/17 23:30 Room Air Notes Mental Status: alert / awake / arousable, participated in evaluation Pt Amnestic to Procedure: Yes Nausea / Vomiting: adequately controlled Pain: adequately controlled Airway Patency, RR, SpO2: stable & adequate BP & HR: stable & adequate Hydration State: stable & adequate Anesthetic Complications: no major complications apparent
[2017-03-01] MEDS: BOOST VANILLA PO SCH ×6 (08:30→17:45)
[2017-03-01] MEDS: CITALOPRAM 20 MG TAB PO SCH (08:31)
[2017-03-01] MEDS: ASPIRIN/ALUM/MAGNES/CAL CARB 325 MG TAB PO SCH ×2 (08:31→21:09)
[2017-03-01] MEDS: MAGNESIUM HYDROXIDE SUSP 30 ML UDC PO PRN (10:35)
--- NOTE | 2017-03-01 15:06 | Progress Note ---
Subjective Date of Service: March 01, 2017. Subjective Pt evaluation today including: conversation w/ patient, physical exam, lab review, review of studies, review of inpatient medication list Saw/examined the patient in room 304 She's doing well, pain controlled Eager to get to [facility] Problem List Medical Problems: (1) Basicervical fracture of right femur Status: Acute (2) Fall Status: Acute Review of Systems Constitutional: No chills, No fever, No weight loss ENT: + trouble swallowing (chronic) Respiratory: No cough, No shortness of breath, No sputum Cardiac: No chest pain Abdomen: No diarrhea, No nausea, No pain, No vomiting Musculoskeletal: + joint pain (pain controlled with medications), + see HPI Medications Current Inpatient Medications Medications (Trade) Dose Ordered Sig/Lucio Route Start Time Stop Time Status Last Admin Dose Admin Acetaminophen (Tylenol Tab) 650 mg Q4H PRN PO 02/25/17 17:45 03/27/17 17:44 Ondansetron HCl (Zofran Inj) 4 mg Q6H PRN IV 02/25/17 17:45 03/27/17 17:44 02/26/17 17:02 4 MG Morphine Sulfate (MoRPHine SULFATE INJ) 4 mg Q4 PRN IV 02/25/17 18:15 03/11/17 18:14 02/28/17 04:41 4 MG Citalopram Hydrobromide (celeXA TAB) 30 mg QAM PO 02/26/17 09:00 03/28/17 08:59 03/01/17 08:31 30 MG Cyclobenzaprine HCl (Flexeril Tab) 5 mg BID PRN PO 02/25/17 18:15 03/27/17 18:14 Fluticasone Propionate (Flonase Nasal [place]) 2 sprays DAILY PRN SHIRA 02/25/17 18:15 03/27/17 18:14 Ondansetron HCl (Zofran Inj) 4 mg Q6H PRN IV 02/26/17 14:45 03/28/17 14:44 Oxycodone HCl (Roxicodone Immediate Rel Tab) 5 mg Q4H PRN PO 02/26/17 14:45 03/12/17 14:44 03/01/17 10:35 5 MG Hydromorphone HCl (Dilaudid Inj) 0.25 mg Q20M PRN IV 02/26/17 14:45 03/12/17 14:44 02/26/17 16:14 0.25 MG Naloxone HCl (Narcan Inj) 0.4 mg Q1M PRN IV 02/26/17 14:45 03/28/17 14:44 Magnesium Hydroxide (Milk Of Magnesia Susp) 30 ml DAILY PRN PO 02/26/17 14:45 03/28/17 14:44 03/01/17 10:35 30 ML Trazodone HCl (Desyrel Tab) 100 mg HS PO 02/26/17 21:00 03/28/17 20:59 02/28/17 21:31 100 MG Aspirin/Aluminum/ Magnesium/Ca Carb (Ascriptin Tab) 325 mg BID PO 02/27/17 09:30 03/29/17 09:29 03/01/17 08:31 325 MG Enteral Nutritional Formula (Boost) 1 can TIDM PO 02/27/17 17:45 03/29/17 17:44 03/01/17 08:30 1 CAN Alprazolam (Xanax Tab) 0.5 mg BID@0500,2100 PO 02/28/17 21:00 03/30/17 20:59 03/01/17 05:15 0.5 MG Objective Vital Signs Date Time Temp Pulse Resp B/P Pulse Ox O2 Delivery O2 Flow Rate FiO2 03/01/17 08:23 Room Air 03/01/17 07:06 36.5 101 17 95/61 99 Room Air 02/28/17 23:45 36.8 104 16 105/66 94 Room Air 02/28/17 23:30 Room Air 02/28/17 16:30 Room Air 02/28/17 15:21 36.7 114 18 96/62 98 Room Air Physical Exam General Appearance: no apparent distress, + cachetic, + thin Respiratory/Chest: lungs clear, normal breath sounds, no respiratory distress, no accessory muscle use Cardiovascular: regular rate, rhythm, no edema, no murmur Abdomen: normal bowel sounds, non tender, soft Extremities: normal inspection, no pedal edema Laboratory Results Last 24 Hours Test 03/01/17 05:24 White Blood Count 7.30 K/uL Red Blood Count 2.81 M/uL Hemoglobin 8.5 g/dL Hematocrit 26.4 % Mean Corpuscular Volume 94.0 fL Mean Corpuscular Hemoglobin 30.2 pg Mean Corpuscular Hemoglobin Concent 32.2 g/dl RDW Standard Deviation 45.7 fL RDW Coefficient of Variation 13.2 % Platelet Count 125 K/uL Mean Platelet Volume 10.2 fL Assessment and Plan This is a 61 year old female with PMH of anxiety/depression, 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 presents with likely mechanical fall and subsequently found to have R hip fracture Right Hip Fracture 03/01 POD #3 d/c plan to [facility] - CM aware full dose aspirin 02/28 s/p ORIF POD #2 full dose aspirin for DVT ppx d/c to [facility] 02/27 s/p ORIF POD #1 appreciate ortho input full dose aspirin for DVT ppx PT/OT - plan for d/c to [facility] on Wednesday, March 0102/26 s/p ORIF POD #0 patient presented with mechanical fall; X-rays showed fracture orthopedic surgery recommend ORIF and intratrochanteric nail she is doing well, pain is controlled with medications PT/OT as per ortho DVT prophylaxis as per ortho Anxiety/Depression increased Trazodone to 100mg qHS hold all vitamins and herbal supplements DVT ppx ASA 325mg FULL CODE
[2017-03-01 15:16] VITALS: BP 96/59; PULSE 102; TEMP 36.5; O2SAT 96
[2017-03-01] MEDS ORDERED: POLYETHYLENE (MIRALAX) 17 GM PACK ONE (16:43)
[2017-03-01] MEDS: POLYETHYLENE (MIRALAX) 17 GM PACK PO SCH (16:52)
[2017-03-01] MEDS: TRAZODONE HCL 100 MG TAB PO SCH (21:08)
[2017-03-01 22:13] VITALS: BP 87/51; PULSE 97; TEMP 36.9; O2SAT 94
[2017-03-01 23:45] VITALS: BP 93/57
[2017-03-02] MEDS: OXYCODONE HCL IR 5 MG TAB (IMMEDIATE RELEASE) PO PRN ×4 (01:00→13:48)
[2017-03-02] MEDS: ALPRAZOLAM 0.5 MG TAB PO SCH (04:54)
[2017-03-02 07:46] VITALS: BP 93/58; PULSE 100; TEMP 36.7; O2SAT 96
[2017-03-02] MEDS: CITALOPRAM 20 MG TAB PO SCH (08:49)
[2017-03-02] MEDS: ASPIRIN/ALUM/MAGNES/CAL CARB 325 MG TAB PO SCH (08:49)
[2017-03-02] MEDS: BOOST VANILLA PO SCH ×4 (08:52→12:14)
[2017-03-02] MEDS: POLYETHYLENE (MIRALAX) 17 GM PACK PO SCH (08:53)
[2017-03-02 11:45] VITALS: BP 112/64; PULSE 90; TEMP 36.4; O2SAT 98
--- NOTE | 2017-03-02 12:13 | Progress Note ---
Subjective Date of Service: March 02, 2017. Subjective Pt evaluation today including: conversation w/ patient, physical exam, lab review, review of studies, review of inpatient medication list Saw/examined the patient in room 304 Doing well today Pain controlled No other issues to note Problem List Medical Problems: (1) Basicervical fracture of right femur Status: Acute (2) Fall Status: Acute Review of Systems Constitutional: No chills, No fever Respiratory: No shortness of breath Cardiac: No chest pain Musculoskeletal: No joint pain (pain controlled) Medications Current Inpatient Medications Medications (Trade) Dose Ordered Sig/Lucio Route Start Time Stop Time Status Last Admin Dose Admin Acetaminophen (Tylenol Tab) 650 mg Q4H PRN PO 02/25/17 17:45 03/27/17 17:44 Ondansetron HCl (Zofran Inj) 4 mg Q6H PRN IV 02/25/17 17:45 03/27/17 17:44 02/26/17 17:02 4 MG Morphine Sulfate (MoRPHine SULFATE INJ) 4 mg Q4 PRN IV 02/25/17 18:15 03/11/17 18:14 02/28/17 04:41 4 MG Citalopram Hydrobromide (celeXA TAB) 30 mg QAM PO 02/26/17 09:00 03/28/17 08:59 03/02/17 08:49 30 MG Cyclobenzaprine HCl (Flexeril Tab) 5 mg BID PRN PO 02/25/17 18:15 03/27/17 18:14 Fluticasone Propionate (Flonase Nasal [place]) 2 sprays DAILY PRN SHIRA 02/25/17 18:15 03/27/17 18:14 Ondansetron HCl (Zofran Inj) 4 mg Q6H PRN IV 02/26/17 14:45 03/28/17 14:44 Oxycodone HCl (Roxicodone Immediate Rel Tab) 5 mg Q4H PRN PO 02/26/17 14:45 03/12/17 14:44 03/02/17 09:42 5 MG Hydromorphone HCl (Dilaudid Inj) 0.25 mg Q20M PRN IV 02/26/17 14:45 03/12/17 14:44 02/26/17 16:14 0.25 MG Naloxone HCl (Narcan Inj) 0.4 mg Q1M PRN IV 02/26/17 14:45 03/28/17 14:44 Magnesium Hydroxide (Milk Of Magnesia Susp) 30 ml DAILY PRN PO 02/26/17 14:45 03/28/17 14:44 03/01/17 10:35 30 ML Trazodone HCl (Desyrel Tab) 100 mg HS PO 02/26/17 21:00 03/28/17 20:59 03/01/17 21:08 100 MG Aspirin/Aluminum/ Magnesium/Ca Carb (Ascriptin Tab) 325 mg BID PO 02/27/17 09:30 03/29/17 09:29 03/02/17 08:49 325 MG Enteral Nutritional Formula (Boost) 1 can TIDM PO 02/27/17 17:45 03/29/17 17:44 03/02/17 08:52 1 CAN Alprazolam (Xanax Tab) 0.5 mg BID@0500,2100 PO 02/28/17 21:00 03/30/17 20:59 03/02/17 04:54 0.5 MG Polyethylene (Miralax Powder Packet) 17 gm DAILY PO 03/01/17 16:15 03/31/17 16:14 03/02/17 08:53 17 GM Objective Vital Signs Date Time Temp Pulse Resp B/P Pulse Ox O2 Delivery O2 Flow Rate FiO2 03/02/17 11:45 36.4 90 16 112/64 98 Room Air 03/02/17 07:46 36.7 100 16 93/58 96 Room Air 03/02/17 07:45 Room Air 03/01/17 23:45 93/57 03/01/17 22:13 36.9 97 16 87/51 94 Room Air 03/01/17 19:30 Room Air 03/01/17 15:16 36.5 102 16 96/59 96 Room Air Physical Exam General Appearance: no apparent distress, + cachetic, + thin Respiratory/Chest: lungs clear, normal breath sounds, no respiratory distress, no accessory muscle use Cardiovascular: regular rate, rhythm, no edema, no murmur Extremities: normal range of motion Assessment and Plan This is a 61 year old female with PMH of anxiety/depression, 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 presents with likely mechanical fall and subsequently found to have R hip fracture Right Hip Fracture 03/02 POD #4 plan for Count Includes [facility] had been denied plan to d/c to [facility] today 5 POD #3 d/c plan to Count Includes [facility] - CM aware full dose aspirin 02/28 s/p ORIF POD #2 full dose aspirin for DVT ppx d/c to Count Includes [facility] 02/27 s/p ORIF POD #1 appreciate ortho input full dose aspirin for DVT ppx PT/OT - plan for d/c to Count Includes [facility] on March 0102/26 s/p ORIF POD #0 patient presented with mechanical fall; X-rays showed fracture orthopedic surgery recommend ORIF and intratrochanteric nail she is doing well, pain is controlled with medications PT/OT as per ortho DVT prophylaxis as per ortho Anxiety/Depression increased Trazodone to 100mg qHS hold all vitamins and herbal supplements DVT ppx ASA 325mg FULL CODE
[2017-03-02] MEDS ORDERED: ASPI325T60 PO (12:18)
[2017-03-02] MEDS ORDERED: ALPR-411 PO ×2 (12:18→12:55)
[2017-03-02] MEDS ORDERED: RXC5 PO ×2 (12:18→12:55)
--- NOTE | 2017-03-02 12:21 | Discharge Instructions ---
Discharge Instructions Date of Service March 02, 2017. Admission Reason for Admission: Hip Fracture Discharge Discharge Diagnosis / Problem: R hip fracture Discharge Goals Goal(s): Decrease discomfort, Improve function, Diagnostic testing, Therapeutic intervention Activity Recommendations Activity Limitations: resume your previous activity . Instructions / Follow-Up Instructions / Follow-Up Please follow-up with orthopedic surgery and primary care after stay at [facility] Diet Patient's current hospital diet: AHA Diet (Heart Healthy) Discharge Diet Recommended Diet: AHA Diet (Heart Healthy) Procedures Procedures Performed: Open Reduction Internal Fixation with an Intramedullary Trochanteric Nail. Pending Studies Studies pending at discharge: no Medical Emergencies . Who to Call and When: Medical Emergencies: If at any time you feel your situation is an emergency, please call 911 immediately. . Non-Emergent Contact Non-Emergency issues call your: Primary Care Provider . . "Provider Documentation" section prepared by Misty Cerda. . Ground Instructor Advanced Recommendations Ground Instructor Advanced Recommendations: [facility] DISCHARGE INSTRUCTIONS: HIP FRACTURE SELF CARE INSTRUCTIONS: A. You are to ambulate with a walker or crutches for approximately 6 weeks. B. You are WEIGHT BEARING TOLERATED on your operative lower extremity. C. Wear low heeled shoes with non-slip soles D. Be sure that your floors are free of things that could trip you throw rugs, electrical cords, and small objects. Avoid wet and waxed floors, especially with crutches/walker/cane. E. Try to walk several times a day with rest periods between. F. You may shower 48 hours after surgery and get the incision area wet, but DO NOT soak or submerge incision area in water. (No baths, swimming pools, hot tubs ) G. You may have a large, band-aid like dressing over your incision (Aquacel). This will remain on your incision for 7 days, and then can be removed. You CAN shower with this on. If incision is leaking through the dressing, please call the office . H. Do NOT apply soap or any ointment/lotions directly over incision. I. You may use ice as needed to operative site. SPECIAL CARE INSTRUCTIONS: VERY IMPORTANT TO READ AND REVIEW A. You may be at risk for phlebitis or blood clots. a. Wear surgical stockings (TERRI hose) for 2 weeks after surgery to improve circulation and reduce swelling. b. Take ASPIRIN 325 mg twice daily for 4 weeks or as directed. This is your blood thinner. c. If you are on Coumadin- you will have daily/weekly blood work to monitor your levels. This will be done by either your family physician/ package car driver (if you are on Coumadin chronically) versus your orthopedic surgeon. Expect a phone call the day of or the day after your blood work is drawn to adjust your dose accordingly. B. There are a few signs you need to watch for after you are home. Call [facility] at [phone] if you experience any of the following: a. If you have a temperature of 101 degrees or higher. b. Sudden increase in pain in your hip not relieved by rest or pain medication. c. Any fluid or drainage from the incision; redness of the incision. d. Shortness of breath or chest pain. B. Please call [facility] at [phone] if you have any questions or concerns about your operation or recovery. C. Call your physician if: a. Temperature is greater than 101 degrees (F). b. Pain is not relieved by prescribed pain medications. c. Increase drainage or redness from incision. d. Unanswered questions or concerns. D. Pain Medication: a. You will be prescribed pain medication upon discharge that should last till your first post-operative appointment. b. If you experience nausea and/or skin rash, discontinue this medication and contact our office for an alternative medication. c. Caution- narcotic pain medication can cause constipation. FOLLOW UP VISIT: Please call [facility] at [phone] to schedule a follow up appointment 10-14 days from the date of your surgery date. VTE Core Measure Inpt VTE Proph given/why not?: Other Anticoagulation (full dose ASA BID) [place] Drug Monitoring Program Search Results: patient reviewed within database, no issues identified
--- NOTE | 2017-03-02 12:23 | Discharge Summary ---
Discharge Summary Date of Service March 02, 2017. Discharge Summary Admission Date: Feb 25, 2017 at 17:36 Discharge Date: March 02, 2017 Discharge Disposition: [facility] facility Principal Diagnosis: R Hip fracture s/p ORIF Medication Reconciliation New Medications: Oxycodone HCl (Oxycodone HCl) 5 Mg Tab 5 MG PO Q4H PRN for Moderate Pain (pain scale 4-6) for 3 Days, #12 TAB Changed Medications: Aspirin Buffered (Fermin Carb-Mag (Tri-Buffered Aspirin) 1 Tab Tab 325 MG PO BID for 10 Days, #20 TABS (Changed from: Aspirin (Aspirin 81) 81 Mg Tab 81 Mg PO DAILY) Continued Medications: Alprazolam (Alprazolam) 0.5 Mg Tab 1 TAB PO BID PRN for Anxiety for 3 Days, #6 TAB (This prescription has been renewed) Calcium W/ Magnesium (Calcium Magnesium 750) Unknown Strength Tab Unknown Dose PO DAILY Citalopram (Citalopram Hydrobromide) 20 Mg Tab 30 MG PO QAM Cyclobenzaprine Hcl (Flexeril) 5 Mg Tab 1 TAB PO BID PRN for Muscle Spasms for 10 Days, #20 TAB Fluticasone Propionate (Nasal) (Flonase Allergy Relief) 50 Mcg/Act Spr 2 SPRAYS SHIRA DAILY PRN for Nasal Congestion Trazodone Hcl (Trazodone) 50 Mg Tab 50 MG PO HS, TAB Discontinued Medications: Cyanocobalamin (Vitamin B-12 1000 Mcg) 1,000 Mcg Tab 1 TAB PO Q2D for 30 Days, TAB 2 Refills Fish Oil ([place]-3) 1 Ea Cap 1 CAP PO DAILY, CAP Crystal (Zingiber Officinalis) (Crystal Root) Unknown Strength Cap 1 CAP PO DAILY Pyridoxine HCl (B6 Natural) 100 Mg Tab 1 TAB PO DAILY Turmeric (Curcuma Longa) (Turmeric) Unknown Strength Cap 1 CAP PO DAILY Vitamins C & E (Vitamin C) 1 Cap Cap DAILY [TRISHA supplement] () Unknown Strength Unknown Dose PO DAILY Admission Information HPI (per Admitting provider): This is a 61 year old female with remote history of CVA in her 20s during , remote history of DVT in 20s during , no longer on anticoagulant, depression, anxiety, and other problems listed below who presents to the ED for right hip pain s/p mechanical fall. Patient reports falling today while walking her dog. She states lealexandra got tangled on mail box and she lost her balance and fell off the curb. She fell onto her right hip and her neighbor moved her off the street and she was brought to ER by ambulance. She also sustained abrasion to her right elbow and right ankle but not having pain there. She rates right hip pain 7-8/10. Has received IV morphine total of 8 mg in ER with mild improvement. Patient was feeling normally (for her) prior to falling. Patient is currently undergoing neurology workup for dysphagia, dysarthria, and balance difficulty which started in July 2016. She was seen by Dr. 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 Referral to [facility] was made and she has an appointment for March 09. Patient reports improved swallowing after undergoing esophageal dilation. She has been tolerating ground diet with precautions. No aspiration episodes. She had been using a cane to ambulate in the house. She reports exercising regularly on a stationery bike. She denies dizziness, syncope, GOODMAN, vision change, focal weakness or numbness, fevers, chills, URI symptoms, cough, SOB, ESQUIVEL, chest pain, palpitations, N/V/D, dysuria , frequency, abnormal bleeding, calf pain, edema. No history of cardiac disorder. Physical Exam (per Admitting): General Appearance: no apparent distress, + thin, + pertinent finding ( alert cooperative 61 year old female, lying in bed, no distress, at bedside) Head: normocephalic, atraumatic Eyes: normal inspection, PERRL, EOMI, sclerae normal ENT: hearing grossly normal, pharynx normal, + pertinent finding (mildly hoarse speech) Neck: supple, trachea midline Respiratory/Chest: lungs clear, normal breath sounds, no respiratory distress Cardiovascular: regular rate, rhythm, no murmur Abdomen/GI: normal bowel sounds, non tender, soft Extremities/Musculoskelatal: no calf tenderness, no pedal edema, + pertinent finding (pain with movement of right hip. prefers to keep right hip flexed. no pain on ROM of right elbow and right ankle. ) Neurologic/Psych: alert, normal mood/affect, oriented x 3, + pertinent finding (speech is hoarse, no facial droop, unable to move the right hip due to pain, otherwise no gross focal deficit) Skin: normal color, warm/dry, + pertinent finding (ecchymosis right lateral hip. mild abrasion to right elbow. minimal abrasion to right ankle. 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 presents with likely mechanical fall and subsequently found to have R hip fracture Right Hip Fracture 5/ POD #4 plan for [facility] had been denied plan to d/c to [facility] today 5 POD #3 d/c plan to [facility] - CM aware full dose aspirin 02/28 s/p ORIF POD #2 full dose aspirin for DVT ppx d/c to [facility] 02/27 s/p ORIF POD #1 appreciate ortho input full dose aspirin for DVT ppx PT/OT - plan for d/c to [facility] on Wednesday, March 0102/26 s/p ORIF POD #0 patient presented with mechanical fall; X-rays showed fracture orthopedic surgery recommend ORIF and intratrochanteric nail she is doing well, pain is controlled with medications PT/OT as per ortho DVT prophylaxis as per ortho Anxiety/Depression increased Trazodone to 100mg qHS hold all vitamins and herbal supplements DVT ppx ASA 325mg FULL CODE Total time spent on discharge = 35 minutes This includes examination of the patient, discharge planning, medication reconciliation, and communication with other providers. Discharge Instructions Please follow-up with orthopedic surgery and primary care after stay at [facility]
[2017-03-02 12:26] VITALS: BP 112/64; PULSE 90; TEMP 36.4; O2SAT 98
== END 2017-03-02 14:50 | DRG 481 ==
LOC: ENRESERVTM → ENRESERVDT → EDBD 15:57 → C.EDA 15:57 → C.3E 17:36
PROVIDERS: ADMIT Internal Medicine; ATTEND Family Medicine
PROC: 0QS604Z Reposition Right Upper Femur with Internal Fixation Device, Open Approach (ICD-10-PCS; principal; 2017-02-26 12:00)
DX: S72.141A Displaced intertrochanteric fracture of right femur, initial encounter for closed fracture (principal); G12.20 Motor neuron disease, unspecified; W17.89XA Other fall from one level to another, initial encounter; S50.311A Abrasion of right elbow, initial encounter; S90.511A Abrasion, right ankle, initial encounter; N30.10 Interstitial cystitis (chronic) without hematuria; F32.9 Major depressive disorder, single episode, unspecified; F41.9 Anxiety disorder, unspecified; M19.90 Unspecified osteoarthritis, unspecified site; Y93.K1 Activity, walking an animal; Y92.488 Other paved roadways as the place of occurrence of the external cause; Z86.718 Personal history of other venous thrombosis and embolism; Z79.82 Long term (current) use of aspirin; Z86.73 Personal history of transient ischemic attack (TIA), and cerebral infarction without residual deficits; Z79.899 Other long term (current) drug therapy; Z79.51 Long term (current) use of inhaled steroids

== ENCOUNTER → 2017-06-15 | Outpatient (CLI) | payer OTHER ==
[~2017-06-15] MED LIST changes: +ALPR-411 PO; -ALPR1TAB3 PO; +ASPI325T60 PO; +CALC1TAB25 PO; -CIME800T4; -CITA40TA4; -CLBCRM30 EXT; +CLX/20 PO; +CYCL5TAB PO; +FLUT0.15 NAE; -IBUP1CAP9; -MULTTAB58 PO; +RXC5 PO; -TRAZ100T29 PO; +TRAZ50TA35 PO; -VITACAP26
== END | disposition home or self-care (01) ==
LOC: C.LAB 11:40
PROVIDERS: ATTEND Dentist General Practice
DX: Z76.89 Persons encountering health services in other specified circumstances (principal)

== ENCOUNTER 2017-12-07 08:56 | Day surgery (SDC) | payer OTHER ==
[2017-12-06 11:21] VITALS: BMI 18.0
[~2017-12-07] VITALS: Ht 168.9 cm; Wt 53.6 kg
[~2017-12-07 08:56] MED LIST changes: -ASPI325T60 PO; +ASPI81TA28 PO; +CEFAZOLIN SOD 2000MG/15 ML IV PUSH IV SCH; +LACTATED RINGER'S 1000ML 1,000 ML IV SCH; +RILU1TAB PO; -RXC5 PO
[2017-12-07 09:26] VITALS: BP 119/72; PULSE 88; TEMP 36.6; O2SAT 96; Ht 168.9 cm; Wt 53.6 kg
[2017-12-07] MEDS ORDERED: ATROPINE SULFATE 0.1 MG/ML 5ML SYR IV PRN (11:45)
[2017-12-07] MEDS ORDERED: EpHEDrine SULFATE INJ 50 MG/ML AMP IV PRN (11:45)
[2017-12-07] MEDS ORDERED: ONDANSETRON INJ 2 MG/ML 2 ML VIAL IV PRN ×2 (11:45→13:45)
[2017-12-07] MEDS ORDERED: FENTANYL CITRATE INJ 50 MCG/1 ML 2 ML VIAL IV PRN (11:45)
[2017-12-07] MEDS ORDERED: FENTANYL CITRATE INJ 50 MCG/1 ML 2 ML VIAL ONE (12:14)
[2017-12-07] MEDS ORDERED: PROPOFOL IV EMULSION 10 MG/ML 20 ML VIAL IV ONE (12:15)
[2017-12-07] MEDS ORDERED: LIDOCAINE HCL 2% 2 ML VIAL (20MG/ML) ONE (12:15)
[2017-12-07] MEDS ORDERED: BACITRACIN OINT 15 GM TUBE ONE (12:17)
[2017-12-07] MEDS ORDERED: LIDOCAINE HCL 1% 20 ML VIAL ONE (12:17)
[2017-12-07] MEDS ORDERED: BUPIVACAINE 0.5 % 5 MG/1 ML MPF 30ML VIAL ONE (12:17)
[2017-12-07] MEDS ORDERED: DexMEDEtomidine HCL IV 100 MCG/ML VIAL IV ONE (12:19)
[2017-12-07] MEDS ORDERED: CEFAZOLIN SOD 1 GM VIAL ONE (12:51)
--- NOTE | 2017-12-07 13:27 | [facility] Post Operative Brief Note ---
Immediate Operative Summary Operative Date Dec 07, 2017. Pre-Operative Diagnosis Need for IV site due to ALS Post-Operative Diagnosis Same Procedure(s) Performed Placement of A-Port in Left Subclavian Vein, Removal of PICC line Surgeon Dr Horta Executive Asst Surgeon(s) Connie Velásquez PA-C Estimated Blood Loss 5ML Findings Consistent with Post-Op Diagnosis patent left subclavian vein Fluids (cc crystalloids) 600ml Specimens None per Dr Horta Drains None Anesthesia Type MAC Complication(s) none Disposition Accompanied Pt To Recover: yes Disposition: Recovery Room / PACU
[2017-12-07] MEDS ORDERED: OXYC-57 PO (13:40)
--- NOTE | 2017-12-07 13:43 | Discharge Instructions ---
Discharge Instructions Date of Service Dec 07, 2017. Admission Reason for Admission: ALS Discharge Discharge Diagnosis / Problem: same Discharge Goals Goal(s): Decrease discomfort, Improve function Activity Recommendations Activity Limitations: as noted below No heavy lifting over 10 pounds for 1-2 weeks No repetitive movements with the left arm No strenuous activity for 2 weeks No [address] while taking narcotic pain medication or until you are pain free . Instructions / Follow-Up Instructions / Follow-Up You may shower in 3 days. Sponge bath and wash hair in meantime. Keep dressing clean and dry. If they need to use your port prior to 3 days , they can remove dressing and steri strips for access. If port is not being accessed for some time, remove dressing in 3 days. Leave steri strips on incision for 7 days and then remove. No submerging incisions underwater for 2 weeks You will be given prescription for narcotic pain medication as needed for moderate to severe pain. You may take Tylenol or ibuprofen as needed for mild pain. Follow-up in surgical office as scheduled, please call office at [phone] if you do not already have an appointment. Current Hospital Diet Patient's current hospital diet: Discharge Diet Recommended Diet: Regular Diet Procedures Procedures Performed: Placement of A-Port in Left Subclavian Vein, Removal of PICC line Pending Studies Studies pending at discharge: no Medical Emergencies . Who to Call and When: Medical Emergencies: If at any time you feel your situation is an emergency, please call 911 immediately. . Non-Emergent Contact Non-Emergency issues call your: Primary Care Provider, Surgeon Call Non-Emergent contact if: you have a fever, temperature is above 101, your pain is not controlled, your pain is worsening, your pain is unusual for you, wound has increased drainage, wound has increased redness, wound has increased pain . "Provider Documentation" section prepared by Connie Velásquez. . VTE Core Measure Inpt VTE Proph given/why not?: SCD's [place] Drug Monitoring [place] Search Results: patient reviewed within database, no issues identified
[2017-12-07] MEDS ORDERED: MoRPHine SULFATE 4 MG/ML 1 ML CARP\\VIAL IV PRN (13:45)
[2017-12-07] MEDS ORDERED: ACETAMINOPHEN 325 MG TAB PO PRN (13:45)
[2017-12-07] MEDS ORDERED: MoRPHine SULFATE 2 MG/ML CARP IV PRN ×2 (13:45)
[2017-12-07] MEDS ORDERED: OXYCODONE/ACETAMINOPHEN 5-325 TAB PO PRN ×2 (13:45)
--- NOTE | 2017-12-07 14:00 | Anesthesiology Progress Note ---
Anesthesia Post Op Note Date & Time Dec 07, 2017 at 14:00 Vital Signs Pain Intensity: 0 Vital Signs Past 12 Hours Date Time Temp Pulse Resp B/P (MAP) Pulse Ox O2 Delivery O2 Flow Rate FiO2 12/07/17 13:57 72 15 12/07/17 13:57 73 15 95 12/07/17 13:55 99/68 12/07/17 13:52 66 14 12/07/17 13:52 66 14 100 12/07/17 13:51 100/65 12/07/17 13:47 70 12 98 12/07/17 13:47 69 12 12/07/17 13:45 105/60 12/07/17 13:42 36.1 72 18 96/57 100 Oxymask 10 12/07/17 13:42 67 12 96/57 99 12/07/17 13:42 68 12 12/07/17 09:26 36.6 88 18 119/72 (88) 96 Room Air Notes Mental Status: alert / awake / arousable, participated in evaluation Pt Amnestic to Procedure: Yes Nausea / Vomiting: adequately controlled Pain: adequately controlled Airway Patency, RR, SpO2: stable & adequate BP & HR: stable & adequate Hydration State: stable & adequate Anesthetic Complications: no major complications apparent
--- NOTE | 2017-12-07 14:00 | DIAGNOSTIC IMAGING REPORT ---
CHEST ONE VIEW PORTABLE CLINICAL HISTORY: 62 years-old Female presenting with s/p left subclavian aport insertion. TECHNIQUE: Portable upright AP view of the chest was obtained. COMPARISON: 02/25/2017. FINDINGS: Left subclavian Mediport terminates in the lower SVC. Cardiac mediastinal silhouette normal. Lungs and pleural spaces clear. Osseous structures normal. Upper abdomen normal. IMPRESSION: 1. Interval placement of left subclavian Mediport, which is appropriately positioned. No pneumothorax. Electronically signed by: Everardo Lemos M.D. 12/07/2017 1:58 PM Dictated Date/Time: 12/07/2017 1:58 PM
[2017-12-07 14:17] VITALS: BP 104/59; PULSE 72; TEMP 36.6; O2SAT 96
[2017-12-07] MEDS ORDERED: OXYCODONE/ACETAMINOPHEN 5-325 TAB ONE (14:34)
[2017-12-07 14:50] VITALS: BP 116/59; PULSE 70; O2SAT 96
[2017-12-07 15:20] VITALS: BP 117/65; PULSE 74; TEMP 36.5; O2SAT 98
--- NOTE | 2017-12-08 08:03 | OPERATIVE REPORT ---
DATE OF OPERATION: 12/07/2017 PREOPERATIVE DIAGNOSIS: Amyotrophic lateral sclerosis. POSTOPERATIVE DIAGNOSIS: Amyotrophic lateral sclerosis. PROCEDURE: Port insertion on the right subclavian vein, remove PICC line on the right arm. SURGEON: Soledad Horta MD PRINT DEVELOPER AUTOMATIC: LEO Harp ANESTHESIA: Conscious sedation plus local. ESTIMATED BLOOD LOSS: About 5 mL. FINDINGS: Pending on the left subclavian vein. COMPLICATIONS: None. INDICATIONS FOR THE PROCEDURE: This is a 62-year-old female who has diagnosis of ALS. The patient need medication treatment, need a port insertion and also the patient need to remove the PICC line on the right arm after port insertion. I did talk to the patient about the benefit and risk, alternate procedure. I indicated the risks may include but not limited such as bleeding, infection, injury to lung, injury to vessel, blood clot, DVT, dysfunction of catheter. The patient understands. She signed informed consent and I answered all questions. DETAILS OF PROCEDURE: We brought the patient to the OR, put the patient in the supine position. The patient received SCD on bilateral legs to prevent DVT. Also, the patient received 1 gram Ancef IV for prophylactic antibiotic. The patient received conscious sedation by the anesthesiology. The patient's left side of the neck and left side of the upper chest was prepped and draped in routine sterile fashion. After time out, I used the local anesthesia injection on the left side of the neck and left side upper chest by using 1% lidocaine mixed with 0.5% Marcaine. Then I used a 16 gauge needle tried to locate the left internal jugular vein; however, the left internal jugular was too small and unsuccessful, so we turned to the left subclavian vein and first time punctured left subclavian vein successfully. Easy blood returned and then we passed the wire over the needle and removed the needle. Then we used the fluoroscopy to confirm the tip of the wire was located in the superior vena cava. Also we put a Trendelenburg during the puncture of the vein, remained Trendelenburg all the time. Then I made about a 2.5 cm incision near the puncture sites and created the pouch for the port. Hemostasis was obtained. Then I used the dilator catheter over the wire and removed the wire and dilator leaving the sheath in and then we passed the port catheter through the sheath. Then we removed the sheath and then we used a fluoroscopy to confirm the tip of the catheter located in the junction between superior vena cava and right atrium. Hemostasis obtained. Using 2-0 Prolene, fixed the port on the left side of chest wall. I used 2-0 Vicryl to close subcutaneous layer continuous running, used 4-0 Vicryl to close the skin continuous running. Then we put the dressing on. Also, we used the heparinized saline, punctured the port through the skin easily, blood returned, the injection 10 mL of heparin with normal saline into the port catheter and then we put the dressing on. The patient tolerated the procedure well. All instrument, needle and sponge count correct x2 at the end of case and patient transferred to recovery room in stable condition. After the procedure, I did talk to the patient and her about the OR finding and procedure we did, they understand. Also I gave them postop care instructions. I attest to the content of the Intraoperative Record and any orders documented therein. Any exception s are noted below.
== END 2017-12-07 15:38 | disposition home or self-care (01) ==
LOC: C.ACU 08:56
PROVIDERS: ATTEND Surgery
DX: Z95.828 Presence of other vascular implants and grafts (principal); G12.21 Amyotrophic lateral sclerosis; R13.10 Dysphagia, unspecified; F32.9 Major depressive disorder, single episode, unspecified; N30.10 Interstitial cystitis (chronic) without hematuria; M19.049 Primary osteoarthritis, unspecified hand; Z88.2 Allergy status to sulfonamides; Z79.82 Long term (current) use of aspirin; Z86.73 Personal history of transient ischemic attack (TIA), and cerebral infarction without residual deficits; Z86.72 Personal history of thrombophlebitis; Z90.710 Acquired absence of both cervix and uterus; Z82.49 Family history of ischemic heart disease and other diseases of the circulatory system